=== PATIENT | male | born 1955 | race Caucasian/White ===

== ENCOUNTER 2021-02-27 14:18 | Emergency (ER) | payer MEDICARE, MEDICAID, SELFPAY ==
--- NOTE | ~2021-02-27 | US_ITS ---
EXAMINATION: US SCROTUM CLINICAL INFORMATION: Testicular swelling and pain.. COMPARISON: None TECHNIQUE: A sonogram of the scrotum was performed assessing lucio-scale appearance and color Doppler flow. Spectral Doppler analysis of the arterial and venous flow were performed in the testes bilaterally. FINDINGS: RIGHT: Right testicle measures 4.5 x 2.8 x 3.9 cm, volume 24.6 mL. No focal testicular parenchymal lesions are visualized. Spectral Doppler analysis of the arterial and venous flow is normal in the right testis. Right epididymal head is normal in size. Mild right-sided varicocele is seen. Mild right-sided hydrocele is present within this. Right epididymal Doppler flow is increased. The right scrotal wall is asymmetrically thickened, measures 0.75 cm as compared to the left side measuring 0.43 cm. Mild diffuse hypoechogenicity is present within the body of the right epididymis. LEFT: Left testicle measures 4.2 x 2.5 x 2.8 cm, volume 15.4 mL. No focal testicular parenchymal lesions are visualized. Spectral Doppler analysis of the arterial and venous flow is normal in the left testis. Left epididymal head is normal in size. No left varicocele is seen. Left epididymal Doppler flow is normal. Minimal left-sided hydrocele is seen. US/US scrotum IMPRESSION: 1. Abnormal study showing evidence of mild asymmetric scrotal wall thickening involving the right hemiscrotum with underlying mild diffuse hypoechogenicity of the body of the right epididymis with increased flow and normal-appearing right testicle. The findings consistent with mild epididymitis. The etiology for sclerotic wall thickening however is indeterminate. 2. Note is also made of mild right-sided varicocele and bilateral small hydrocele and sonographically normal-appearing left testicle and epididymis.
--- NOTE | ~2021-02-27 | US_ITS ---
EXAMINATION: US SCROTUM CLINICAL INFORMATION: Testicular swelling and pain.. COMPARISON: None TECHNIQUE: A sonogram of the scrotum was performed assessing lucio-scale appearance and color Doppler flow. Spectral Doppler analysis of the arterial and venous flow were performed in the testes bilaterally. FINDINGS: RIGHT: Right testicle measures 4.5 x 2.8 x 3.9 cm, volume 24.6 mL. No focal testicular parenchymal lesions are visualized. Spectral Doppler analysis of the arterial and venous flow is normal in the right testis. Right epididymal head is normal in size. Mild right-sided varicocele is seen. Mild right-sided hydrocele is present within this. Right epididymal Doppler flow is increased. The right scrotal wall is asymmetrically thickened, measures 0.75 cm as compared to the left side measuring 0.43 cm. Mild diffuse hypoechogenicity is present within the body of the right epididymis. LEFT: Left testicle measures 4.2 x 2.5 x 2.8 cm, volume 15.4 mL. No focal testicular parenchymal lesions are visualized. Spectral Doppler analysis of the arterial and venous flow is normal in the left testis. Left epididymal head is normal in size. No left varicocele is seen. Left epididymal Doppler flow is normal. Minimal left-sided hydrocele is seen. US/US scrotum doppler IMPRESSION: 1. Abnormal study showing evidence of mild asymmetric scrotal wall thickening involving the right hemiscrotum with underlying mild diffuse hypoechogenicity of the body of the right epididymis with increased flow and normal-appearing right testicle. The findings consistent with mild epididymitis. The etiology for sclerotic wall thickening however is indeterminate. 2. Note is also made of mild right-sided varicocele and bilateral small hydrocele and sonographically normal-appearing left testicle and epididymis.
[2021-02-27 14:37] VITALS: BP 149/82; PULSE 85; RESP 18; TEMP 37; O2SAT 94; BMI 34.8
--- NOTE | 2021-02-27 14:39 | ED.MALEGU ---
HPI - Male Genitourinary General Chief complaint: Urogenital-Male Stated complaint: swollen testicle Time Seen by Provider: 02/27/21 14:38 Source: patient Mode of arrival: ambulatory Limitations: no limitations History of Present Illness HPI Narrative: 65 y/o male with history of GERD presents to the ER with 3 days of right sided testicular pain and swelling. Denies trauma. No recent sexual activity. No fevers or urinary symptoms. No abdominal pain but he is starting to get nauseated as the pain is worsening. He has never had pain like this before. MD Complaint: testicle pain and testicle swelling Onset (ago): day(s) (3) Duration: progressively worsening Location: right testicle Radiation: abdomen Severity: severe Severity scale (1-10): 8 Quality: aching Relieving factors: supine Exacerbating factors: palpation and movement Associated symptoms: Reports denies other symptoms Related Data Sexually active: Yes (none in last 2+ weeks) Previous Rx's Medication Instructions Recorded ibuprofen 600 mg tablet 600 mg PO Q8H PRN #10 tab 02/27/21 levofloxacin 500 mg tablet 500 mg PO DAILY #10 tab 02/27/21 Allergies Allergy/AdvReac Type Severity Reaction Status Date / Time No Known Allergies Allergy Verified 02/27/21 14:39 Review of Systems Constitutional: Constitutional: Denies chills and Denies fever(s) Eyes: Eyes: Reports no additional eye complaints ENT: Reports Normal hearing present Cardiovascular: Cardiovascular: Denies chest pain and Denies dyspnea Respiratory: Respiratory: Denies dyspnea Gastrointestinal: Gastrointestinal: Denies abdominal pain, Denies diarrhea, Denies nausea and Denies vomiting Genitourinary: Genitourinary: Reports change in libido, Denies hematuria, Denies difficulty urinating, Reports genital pain, Denies dysuria, Denies flank pain, Denies penile discharge, Reports scrotal swelling, Reports testicular pain and Denies urinary frequency Musculoskeletal: Musculoskeletal: Denies back pain Integumentary/Breasts: Skin/Breast: Denies rash Neurologic: Reports Normal hearing present Psychiatric: Psychiatric: Reports anxiety and Reports change in libido Endocrine: Endocrine: Reports change in libido Hematologic/Lymphatic: Hematologic/Lymphatic: Denies easy bleeding and Denies easy bruising PMFSH Past Medical History Attestation statement: The following information was validated with the patient. Medical History No known health problems Social History Social History Advance Directives: No Physical Exam Vital Signs: Vital Signs: Last Vital Signs Temp 98.6 F 02/27/21 14:37 Pulse 85 02/27/21 14:37 Resp 18 02/27/21 14:37 BP 149/82 H 02/27/21 14:37 Pulse Ox 94 02/27/21 14:37 Body Mass Index 34.8 Const: General: cooperative, healthy appearing, comfortable and no acute distress Nutritional Appearance: overweight Orientation/consciousness: patient oriented x3 Limitations: no limitations HENMT: Head: Yes normal to inspection, Yes normocephalic and Yes atraumatic Ears: hearing grossly normal bilaterally General nose exam: Normal external nose present Face and sinus: Yes normal facial exam and Yes face symmetric Eyes: General: appearance normal, both eyes and all related structures Neck: Neck: Yes normal visual inspection Chest: Chest palpation & inspection: normal inspection of the chest Resp: Effort & Inspection: normal respiratory effort and able to speak in complete sentences Auscultation: clear to auscultation bilaterally Cardio: Rate: regular rate Rhythm: regular rhythm Heart sounds: S1 normal heart sound present and S2 normal heart sound present GI: Inspection: Yes obesity Palpation (GI): Soft to palpation, not firm and nontender Auscultation: normal bowel sounds Rectal Exam - Male: Yes deferred : Male General Exam: Yes edema on the right, Yes erythema, No hernia and Yes tenderness Testes: testicular lie normal, epididymal tenderness on the right, testicular swelling on the right and testicular tenderness on the right Skin: General skin exam: no rashes or lesions noted Neuro: General: patient oriented x3 Cranial nerves: Yes Normal hearing present Extrem: General: Yes normal to inspection Psych: Appearance: grossly normal and well kempt Mental Status: mental status grossly normal Speech and movement: Normal speech and movement present Course Course Course Narrative: 65 y/o male presenting for evaluation of right sided testicular pain and swelling x3 days. Will check UA and scrotal U/S w/ doppler to r/o torsion and assess for epididymitis. Reevaluation(s) Reevaluation #1: UA negative for infection. US showing findings consistent with mild epididymitis. Will treat with Levaquin x10 days. No concern for STI. Will refer to Urology. Stable for d/c home. MDM - Male Genitourinary Lab Data Labs: Lab Results 02/27/21 Range/Units 15:11 Urine Color YELLOW Urine Appearance CLEAR Urine pH 5.5 (5.0-8.0) Ur Specific [place] >= 1.030 H (1.005-1.025) Urine Protein 1+ H (NEG-TRACE) MG/DL Urine Glucose (UA) NEG (NEG) MG/DL Urine Ketones NEG (NEG) MG/DL Urine Blood NEG (NEG) Urine Nitrite NEG (NEG) Ur Leukocyte Esterase NEG (NEG) Urine RBC 0-2 (0) /HPF Urine WBC 0 (0-4) /HPF Ur Squamous Epith Cells 1+ /LPF Urine Bacteria NONE /LPF Hyaline Casts 0-2 /LPF Urine Mucus 3+ /LPF Critical Care Time Critical Care Time Critical Care Time: No Discharge Plan Discharge Clinical Impression: Epididymitis Patient Disposition: Home, Self-Care Instructions: Epididymitis (ED) Additional Instructions: Take the prescribed antibiotic as directed starting tomorrow, you were given the 1st dose in the ER today. Take motrin and/or Tylenol as needed for pain. Stay off of your feet for prolonged periods of time and keep your scrotum elevated as much as your can - place a small cloth under to raise up. Recommend following up with Urology for further evaluation. Follow up with your doctor as needed. If you develop new or worsening symptoms call 911 or come back to the ER for further evaluation. Prescriptions: New levofloxacin 500 mg tablet 500 mg PO DAILY Qty: 10 RF: 0 ibuprofen 600 mg tablet 600 mg PO Q8H PRN (Reason: fever or pain) Qty: 10 RF: 0 Referrals: Massimo Mcmillan MD [Physician] - 2 days (epididymitis)
[2021-02-27 15:31] LABS: Appearance Urine CLEAR; Color Urine YELLOW; Glucose Urine UA NEG (NEG); Leukocyte Esterase Urine NEG (NEG); Nitrite Urine NEG (NEG); PH 5.5 (5.0-8.0); Specific Gravity - Urine >= 1.030 (1.005-1.025); UACC Culture Trigger NO; Urine Blood NEG (NEG); Urine Ketones NEG (NEG); Urine Protein 1+ MG/DL (NEG-TRACE)
[2021-02-27 15:41] LABS: Hyaline Casts Urine 0-2 /LPF; Mucus Urine 3+ /LPF; RBC Urine 0-2 /HPF (0); Squamous Epithelial Cell Urine 1+ /LPF; WBC Urine 0 /HPF (0-4)
[2021-02-27] MEDS: Ibuprofen 600 MG TABLET PO (16:50)
[2021-02-27] MEDS: levoFLOXacin 500 MG TABLET PO (16:51)
== END 2021-02-27 17:23 | disposition home or self-care (01) ==
PROVIDERS: Physician Assistant; Emergency Provider Emergency Medicine
DX: N45.1 Epididymitis (principal); N50.811 Right testicular pain
CPT/HCPCS: 76870; 81001; 93975; 99284

== ENCOUNTER 2023-11-21 19:38 | Emergency (ER) | payer OTHER, SELFPAY ==
--- NOTE | ~2023-11-21 | CT_ITS ---
EXAMINATION: CT HEAD WITHOUT CONTRAST CLINICAL INFORMATION: Rule out bleed or infarct COMPARISON: None available. TECHNIQUE: Contiguous axial imaging was performed from the skull base to vertex without intravenous administration of contrast. This CT examination was performed using dose optimization techniques as appropriate, variously including the following: *Automated exposure control *Adjustment of mA and/or kV according to patient size (this includes techniques or standardized protocols for targeted exams where dose is matched to indication/reason for exam; i.e. extremities or head) *Use of iterative reconstruction technique DLP: 714 mGy-cm FINDINGS: There is no evidence of an extra-axial collection. There is no evidence of intra or extra-axial hemorrhage. The ventricles and extra-axial CSF spaces are appropriate. Greer-white matter differentiation is normal. There is question decreased attenuation of the right cerebellum. Appearance questionable for infarct. Further evaluation with brain MRI should be considered. No other mass, mass effect or evidence of infarct. No skull fracture. Visualized paranasal sinuses, mastoid air cells and middle ears are clear. CT/CT head/brain wo IV con IMPRESSION: Decreased attenuation in the right cerebellum questionable for infarct. Follow-up brain MRI should be considered if clinically indicated.
--- NOTE | ~2023-11-21 | XR_ITS ---
EXAMINATION: XR chest 2V CLINICAL INFORMATION: Reason for Exam palpitations COMPARISON: No prior chest x-ray available in our system for comparison at the time of this dictation. TECHNIQUE: XR chest 2V, 2 Views Lungs and Roxy: Left suprahilar opacity possibly a summation of vascular and rib shadows, cannot rule out underlying small lung nodule or lymph node. Pleura: Flattening of hemidiaphragm and increased AP diameter suggesting air trapping disease COPD. Heart: The heart is normal in size. Mediastinum: Retrocardiac opacity with air-fluid level most likely hiatal hernia.. Bones: Skeletal structures included are normal for patient's age. XR/XR chest 2V IMPRESSION: 1. Left suprahilar opacity possibly a summation of vascular and rib shadows, cannot rule out underlying lung nodule or lymph node. Consider correlation with follow-up chest x-ray in one month or further investigation with follow-up nonurgent CT scan.. 2. Air trapping disease COPD. 3. Retrocardiac opacity with air-fluid level most likely hiatal hernia.
--- NOTE | ~2023-11-21 | CT_ITS ---
EXAMINATION: CT ANGIOGRAM HEAD CT ANGIOGRAM NECK CLINICAL INFORMATION: Reason for Exam slurred speech COMPARISON: None. TECHNIQUE: Test bolus sequences followed by intravenous administration 70 mL of Omnipaque 350. Helical imaging was performed in the axial plane from the aortic arch to the skull vertex. Delayed postcontrast imaging of the head was also performed. The data was processed at the geospatial technologist's workstation for generation of MIP sequences. Angled MIPs and volume rendered reformatted images were also generated at an offline 3D workstation. Stenoses are assessed in accordance with Mixon et al. Quantification of Carotid Stenosis on CT Angiography. AJR 2006. 27(1):13-19. [address] CT examination was performed using dose optimization techniques as appropriate, variously including the following: *Automated exposure control *Adjustment of mA and/or kV according to patient size (this includes techniques or standardized protocols for targeted exams where dose is matched to indication/reason for exam; i.e. extremities or head) *Use of iterative reconstruction technique DLP: 1615.53 mGy-cm FINDINGS: CT HEAD: Noncontrast head CT findings discussed separately. No pathologic intra-axial enhancement or regional oligemia. CTA HEAD: Arteriovenous timing limits diagnostic assessment. No hemodynamically significant stenosis or occlusion in the anterior or posterior circulation. Patchy calcific plaque along the carotid siphons without associated stenosis. Trace calcific plaque of the left intradural vertebral artery with mild focal stenosis. Dominant right A1 VITO.. No aneurysms and no high flow vascular malformations. Timing of the contrast bolus allows assessment of the major dural venous sinuses, which all opacify normally CTA NECK: Classic 3 vessel branching pattern of the aortic arch. Mild partially calcific atherosclerotic disease of the aortic arch and great vessel origins. Origins of the great vessels are widely patent. Mild atherosclerosis of the common carotid arteries and carotid bifurcations without associated stenosis. The internal carotid arteries are widely patent. The vertebral arteries are codominant The vertebral artery ostia are grossly normal, noting limited diagnostic assessment. Both vertebral arteries are widely patent throughout their extracranial cervical course. CT NECK: Symmetric prominence of the palatine tonsils for age, presumably reactive. 4 mm right upper lobe subpleural nodule and additional smaller punctate subpleural nodule within the more anterior right upper lobe. Cervical spondylosis. CT/CT angio head neck IMPRESSION: 1. Arteriovenous timing limits diagnostic assessment of the distal intracranial arterial vasculature. Within this limitation, no acute arterial occlusion or hemodynamically significant stenosis within the head or neck. 2. 4 mm right upper lobe subpleural nodule According to the UPDATED 2017 Fleischner Society recommendations, the advised followup imaging for solid nodules < 6 mm is: LOW RISK PATIENT: No routine follow up. HIGH RISK PATIENT: Optional CT at 12 months.
[2023-11-21 19:50] VITALS: BP 136/71; PULSE 84; RESP 18; TEMP 36.3; O2SAT 95; BMI 32.9
--- NOTE | 2023-11-21 19:55 | ECG_ITS ---
Test Reason : HEART RACING Blood Pressure : / mmHG Vent. Rate : 078 BPM Atrial Rate : 078 BPM P-R Int : 162 ms QRS Dur : 098 ms QT Int : 360 ms P-R-T Axes : 063 013 033 degrees QTc Int : 410 ms Normal sinus rhythm Normal ECG No previous ECGs available Referred By: Rula Izquierdo Electronically Signed By:CASEY ALVAREZ MD
[2023-11-21 20:20] LABS: MANUAL DIFF FLAG NO
[2023-11-21 20:21] LABS: Basophils Percent Auto 0.5 % (0-2); Eosinophils Absolute Auto 0.3 X10*3/uL (0.0-0.4); Eosinophils Percent Auto 4.7 % (0-4); Hemoglobin 15.1 g/dl (14.0-18.0); Imm Gran Abs Auto 0.02 X10*3/uL (0.00-0.03); Imm Gran Pct Auto 0.3 % (0.0-0.4); Lymphocytes Absolute Auto 1.8 X10*3/uL (1.2-4.9); Lymphocytes Percent Auto 28.1 % (20-40); Mean Corpuscular HGB Conc 34.3 g/dl (31.0-36.0); Mean Corpuscular Hemoglobin 30.4 pg (27.0-33.0); Mean Corpuscular Volume 88.5 fL (80.0-98.0); Monocytes Absolute Auto 0.3 X10*3/uL (0.1-1.2); Monocytes Percent Auto 5.4 % (2-11); Neutrophils Absolute Auto 3.9 x10*3/uL (2.0-8.3); Platelet Count 223 X10*3/uL (160-400); Red Blood Count 4.97 X10*6/uL (4.60-5.80); White Blood Count 6.3 X10*3/uL (4.8-10.8)
[2023-11-21 20:31] LABS: Prothrombin Time 12.5 SEC (11.1-13.3)
[2023-11-21 20:32] VITALS: BP 127/67; PULSE 75; RESP 16; TEMP 36.8; O2SAT 94
[2023-11-21 20:35] LABS: Alanine Aminotransferase 19 U/L (0-40); Albumin Level 3.8 g/dL (3.5-5.0); Alkaline Phosphatase 56 U/L (39-117); Anion Gap 14 (12-20); Aspartate Amino Transferase 20 U/L (5-37); Bilirubin Total 0.6 mg/dL (0.0-1.0); Blood Urea Nitrogen 17 mg/dL (9-16); Calcium 9.7 mg/dL (8.4-10.2); Carbon Dioxide 23 mmol/L (22-29); Chloride 108 mmol/L (96-108); Creatinine Clr Calc Pharmacy 68.7; Estimated Glomerular Filt Rate 56; Glucose Random 122 mg/dL (60-115); Lipase 19 U/L (8-78); Magnesium 1.7 mg/dL (1.6-2.6); Potassium 3.9 mmol/L (3.3-5.1); Sodium 141 mmol/L (135-145); Total Protein 7.4 g/dL (6.5-8.0)
[2023-11-21 20:50] LABS: Troponin-I High Sensitivity < 2.7 ng/L (<3.5-35.0)
--- NOTE | 2023-11-21 21:08 | ED.GENADULT ---
HPI - General Adult General Chief complaint: General Medical Stated complaint: slurring words, sweating, a couple weeks Time Seen by Provider: 11/21/23 20:15 Source: patient, RN notes reviewed and old records reviewed Mode of arrival: ambulatory Limitations: no limitations History of Present Illness ED Provider: James MARTINEZ narrative: 68-year-old male presents for evaluation of slurred speech. He reports a medical history significant for BPH and GERD He also admits taking a baby aspirin daily but denies any other medical issues Patient reports he has noticed slurred speech for the last 1-2 weeks. He reports that his son has been told the patient that he noticed slurred speech at least a month ago after the patient returned from his winter home in [place] The patient also reports that he ?really have to think what I am about to say so that it comes out right. ? The patient denies any pain, blurry vision, dizziness He denies any weakness He has no other complaints or concerns at this time Related Data Previous Rx's ?Medication ?Instructions ?Recorded ibuprofen 600 mg tablet 600 mg PO Q8H PRN fever or pain 02/27/21 #10 tabs levofloxacin 500 mg tablet 500 mg PO DAILY #10 tabs 02/27/21 Allergies Allergy/AdvReac Type Severity Reaction Status Date / Time No Known Allergies Allergy Verified 11/21/23 19:56 Review of Systems Constitutional: Constitutional: Denies body ache(s), Denies chills and Denies headache(s) Eyes: Eyes: Denies blurry vision and Denies loss of vision ENT: Denies vertigo, Denies dizziness and Denies headache(s) Cardiovascular: Cardiovascular: Denies chest pain and Denies dyspnea Respiratory: Respiratory: Denies cough and Denies dyspnea Gastrointestinal: Gastrointestinal: Denies abdominal pain, Denies nausea and Denies vomiting Musculoskeletal: Musculoskeletal: Denies back pain Neurologic: Denies Neuro-related abnormal movements, Reports Abnormal speech present, Denies vertigo, Denies dizziness, Denies headache(s), Denies focal weakness, Denies loss of vision and Denies Sensory deficit (Neuro) [facility] Past Medical History Medical History No known health problems Social History Social History Smoked in Last 30 Days: No Use of substances other than those prescribed or required for medical reasons: No Advance Directives: No Advance Directives Information Provided: No Do you have a plan to hurt others: No Plan Physical Exam ED Vital Signs: Vital Signs - 24 hr 11/21/23 19:50 11/21/23 20:32 Temperature 97.3 F 98.3 F Pulse Rate 84 75 Respiratory Rate 18 16 Blood Pressure 136/71 127/67 Pulse Oximetry 95 94 Oxygen Delivery Method Room Air Room Air BMI result Body Mass Index 32.9 Const General: healthy appearing, comfortable, no acute distress, alert and awake Nutritional Appearance: well nourished Orientation/consciousness: patient oriented x3 HENMT Head: Yes normocephalic and Yes atraumatic Eyes Eyelids: Yes eyelids normal Conjunctivae: conjunctivae normal Sclerae: sclerae normal Corneas: corneas normal Pupils: Equal, round and reactive pupils present EOM: EOMs intact bilaterally Neck Neck: Yes full ROM Resp Effort & Inspection: normal respiratory effort, able to speak in complete sentences and not labored Skin General skin exam: elasticity normal Neuro General: patient oriented x3 Cranial nerves: Yes CN's II-XII intact bilaterally, Yes Equal, round and reactive pupils present and Yes Bilaterally intact EOM present Cognition (Neuro): normal cognition Speech: Abnormal speech present Gait exam (Neuro): Normal gait present Motor exam (neuro): 5/5 motor strength present throughout Sensory Exam: No Sensory deficit (Neuro) Extrem Other: Moving all extremities well without any obvious deformities NIH Stroke Scale Internal: Initial- Upon Arrival Time: 20:41 Level of Consciousness: Alert Level of Consciousness Questions: Answers both questions correctly Level of Consciousness Commands: Performs both tasks correctly Best Gaze: Normal Visual: No visual loss Facial Palsy: Normal Motor Arm (Right): No drift Motor Arm (Left): No drift Motor Leg (Right): No drift Motor Leg (Left): No drift Limb Ataxia: Absent Sensory: Normal Best Language: No aphasia Dysarthia: Mild to moderate dysarthria Extinction and Inattention: No abnormality Score: 1 Medications Administered Discontinued Medications Generic Name Dose Route Start Last Admin Trade Name Freq PRN Reason Stop Dose Admin Clopidogrel Bisulfate 75 mg 11/21/23 21:55 11/21/23 22:53 Clopidogrel Bisulfate 75 Mg Tablet PO 11/21/23 21:56 75 mg ONCE ONE Administration Iohexol 70 ml 11/21/23 21:22 11/21/23 21:23 Iohexol 350 Mg/Ml 100 Ml Infus..Btl IV 11/21/23 21:23 70 ml ONCE ONE Administration Medical Decision Making Medical Decision Making [facility] Narrative: 68-year-old male presents for evaluation of slurred speech. It is not entirely clear when his symptoms started, but the patient's son reported the patient that he has noticed slurred speech at least a month ago possibly going back to a month and a half. The patient reports his symptoms seem to be worsening over the last 1-[address], the patient symptoms are well outside the window for treatment with TNK. I ordered a CT angiography to go along with a dry CT that was ordered in triage. This will help get a better look if there is any large vessel occlusion. The patient's stroke score is currently at 1 also very low and likely rules him out for TNK as well Differential Diagnosis Differential Diagnoses: The differential diagnosis associated with the presentation includes CVA TIA Large vessel occlusion Aphasia Admission/Observation Consideration of admission/observation: Escalation of care including admission/observation considered Consider admission due to CVA. After discussion with the hospitalist and the chronicity of the symptoms it is felt that the patient's MRI can be ordered as an outpatient. Furthermore, the patient does not have any clinically significant large vessel occlusion Lab Data MDM Lab Attestation statement: I reviewed the patient's lab results. No leukocytosis, anemia, or left shift. Chemistries and no significant abnormalities. His BUN is just above normal at 17 and a random glucose of 122. The patient is not diabetic. Electrolytes within normal limits, creatinine within normal limits. Troponin undetectable, LFTs within normal limits. INR within normal limits. 11/21/23 20:15 11/21/23 20:15 Labs: Lab Results 11/21/23 Range/Units 20:15 WBC 6.3 (4.8-10.8) X10*3/uL RBC 4.97 (4.60-5.80) X10*6/uL Hgb 15.1 (14.0-18.0) g/dl Hct 44.0 (42.0-52.0) % MCV 88.5 (80.0-98.0) fL MCH 30.4 (27.0-33.0) pg MCHC 34.3 (31.0-36.0) g/dl RDW 13.0 (11.0-16.0) % Plt Count 223 (160-400) X10*3/uL MPV 9.0 L (9.4-12.4) fL Immature Gran % (Auto) 0.3 (0.0-0.4) % Neut % (Auto) 61.0 (45-73) % Lymph % (Auto) 28.1 (20-40) % Eddy % (Auto) 5.4 (2-11) % Eos % (Auto) 4.7 H (0-4) % Baso % (Auto) 0.5 (0-2) % Lymph # (Auto) 1.8 (1.2-4.9) X10*3/uL Eddy # (Auto) 0.3 (0.1-1.2) X10*3/uL Eos # (Auto) 0.3 (0.0-0.4) X10*3/uL Baso # (Auto) 0.0 (0.0-0.2) X10*3/uL Abs Immat Gran (auto) 0.02 (0.00-0.03) X10*3/uL Absolute Neuts (auto) 3.9 (2.0-8.3) x10*3/uL Absolute Nucleated RBC 0.000 (0.0-0.012) X10*3/uL Nucleated RBC % (auto) 0.0 (0.0-0.2) /100WBC PT 12.5 (11.1-13.3) SEC INR 1.0 (0.9-1.1) APTT 29.2 (26.0-36.8) SEC Sodium 141 (135-145) mmol/L Potassium 3.9 (3.3-5.1) mmol/L Chloride 108 (96-108) mmol/L Carbon Dioxide 23 (22-29) mmol/L Anion Gap 14 (12-20) BUN 17 H (9-16) mg/dL Creatinine 1.28 (0.5-1.4) mg/dL Estim Creat Clear Calc 68.7 Estimated GFR 56 Random Glucose 122 H (60-115) mg/dL Calcium 9.7 (8.4-10.2) mg/dL Magnesium 1.7 (1.6-2.6) mg/dL Total Bilirubin 0.6 (0.0-1.0) mg/dL AST 20 (5-37) U/L ALT 19 (0-40) U/L Alkaline Phosphatase 56 (39-117) U/L Troponin I High Sens < 2.7 (<3.5-35.0) ng/L Total Protein 7.4 (6.5-8.0) g/dL Albumin 3.8 (3.5-5.0) g/dL Lipase 19 (8-78) U/L Radiology Impression Discussion of test interpretation with radiology: I have reviewed the radiologist's reading. Radiologist Impression: CT/CT angio head neck IMPRESSION: 1. Arteriovenous timing limits diagnostic assessment of the distal intracranial arterial vasculature. Within this limitation, no acute arterial occlusion or hemodynamically significant stenosis within the head or neck. 2. 4 mm right upper lobe subpleural nodule According to the UPDATED 2017 Fleischner Society recommendations, the advised followup imaging for solid nodules < 6 mm is: LOW RISK PATIENT: No routine follow up. HIGH RISK PATIENT: Optional CT at [address]/CT head/brain wo IV con IMPRESSION: Decreased attenuation in the right cerebellum questionable for infarct. Follow-up brain MRI should be considered if clinically indicated. Discharge Plan Discharge Clinical Impression: Acute CVA (cerebrovascular accident) Patient Disposition: Home, Self-Care Instructions: Ischemic Stroke (DC) Additional Instructions: Your workup showed an ischemic stroke This is likely the cause of your slurred speech I recommend that you continue your baby aspirin and take Plavix daily as well as atorvastatin daily It is important that you follow-up with your primary doctor You should have an outpatient MRI of your brain to better evaluate the affected area Return for new or worsening symptoms Prescriptions: No Action levofloxacin 500 mg tablet 500 mg PO DAILY Qty: 10 0RF ibuprofen 600 mg tablet 600 mg PO Q8H PRN (Reason: fever or pain) Qty: 10 0RF Print Language: Arabic
[2023-11-21] MEDS: iohexoL 350 MG/ML 100 ML INFUS..BTL 70 ML IV (21:23)
[2023-11-21 21:42] LABS: Partial Thromboplastin Time 29.2 SEC (26.0-36.8)
[2023-11-21] MEDS: Clopidogrel Bisulfate 75 MG TABLET PO (22:53)
[2023-11-21 23:27] VITALS: BP 167/85; PULSE 69; RESP 20; TEMP 36.8; O2SAT 95
[2023-11-21] MEDS: LORazepam 0.5 MG TABLET PO (23:34)
[2023-11-21] MEDS: Atorvastatin Calcium 40 MG TABLET PO (23:34)
[2023-11-21 23:42] VITALS: BP 167/85; PULSE 69; RESP 20; TEMP 36.8
--- OUTSIDE RECORDS SUMMARY | 2023-11-24 10:02 | XMS_ITS | Continuity of Care Document ---
Author Organization [facility] ter Address [address] [place] [id number]- Care Team Providers Care Towel Stretcher Name Role Phone Crissy Ley Primary Care Physician Encounter [facility] Date(s): 07/06/22 - 07/07/[address] [address]- Discharge Disposition: A-D/C Walkout Attending Physician: Not on Staff, Attending MD Admitting Physician: Not on Staff, Admitting MD Referring Physician: Not on Staff, Referring MD Allergies, Adverse Reactions, Alerts No Known Allergies Immunizations Given and Recorded Vaccine Date Status Refusal Reason Influenza Inactive (IM) (oldterm) 1 05/29/08 Given 1Admin Note: vis given Medications Prilosec 20 mg oral enteric coated capsule 1 capsule = 20 mg, By Mouth, Daily, # 30 capsule, 11 Refills, 02/03/09 15:47:15 Start Date: 02/03/09 Stop Date: 01/29/10 Status: Ordered Ranitidine 0 Refills, Maintenance, 07/24/19 20:20:00 EST Start Date: 07/24/19 Status: Ordered Problem List Condition Confirmation Course Effective Dates Status Health St atus Informant Acid reflux Confirmed Active 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 Active Tubular adenoma of colon Confirmed Active Vital Signs Most recent to oldest [Reference Range]: 1 2 3 Oxygen Saturation [94-100 %] 95 % (07/07/22 12:33 AM) 96 % (07/06/22 9:35 PM) 97 % (07/06/22 6:43 PM) Pulse Rate [55-90 bpm] 82 bpm (07/07/22 12:33 AM) 84 bpm (07/06/22 9:35 PM) 83 bpm (07/06/22 6:43 PM) Blood Pressure [90-138/55-84 mm Hg] 126/72mm Hg (07/07/22 12:33 AM) 119/77mm Hg (07/06/22 9:35 PM) 113/88mm Hg (07/06/22 6:43 PM) Respiratory Rate [16-30 br/min] 18 br/min (07/06/22 4:59 PM) 16 br/min (07/06/22 10:49 AM) Temperature [96.8-100.4 DegF] 98.6 DegF (07/07/22 12:33 AM) 99.4 DegF (07/06/22 9:35 PM) 99.4 DegF (07/06/22 6:43 PM) Mode of Delivery (Oxygen) Room air (07/06/22 6:43 PM) Room air (07/06/22 4:59 PM) Room air (07/06/22 2:53 PM) Blood pressure sites Arm, left (07/07/22 12:33 AM) Arm, right (07/06/22 9:35 PM) Arm, right (07/06/22 6:43 PM) Temperature Route Oral (07/07/22 12:33 AM) Oral (07/06/22 9:35 PM) Oral (07/06/22 6:43 PM) Social History Social History Type Response Smoking Status Never smoker entered on: 03/28/17 Sex EKG study * Event Display: EKG Authored Date: * Event Display: ECG 12-Lead Authored Date: Please click on pdf link to open report * Event Display: ECG 12-Lead Authored Date: Ventricular Rate: 109 BPM Atrial Rate: 109 BPM P-R Interval: 148 ms QRS Duration: 88 ms Q-T Interval: 314 ms QTC Calculation(Bazett): 422 ms P Ashton: 62 degrees R Ashton: 28 degrees T Ashton: 34 degrees Sinus tachycardia Otherwise normal ECG When compared with ECG of 25-JUL-2019 08:24, No significant change was found Confirmed by AMILCAR SLAUGHTER MD ([id number]) on 07/06/2022 4:22:44 PM [place]: AMILCAR SLAUGHTER MD Patient Care team information Care Team Personnel Name: Jaswinder PRECIADO, Marisa Position: S RN Member Role: Primary Care Nurse Name: Crissy Ley Position: Reference Physician Member Role: PCP Address: Address: [address] [place] [id number]- Care Team Related Persons Name: RASHIDA CRANE Address: home [address] [place] [address] Name: MACEY CRANE Address: home [address] [place] [address] Name: FRANKY CRANE Address: home [address] [place] [address]
--- OUTSIDE RECORDS SUMMARY | 2023-11-24 10:02 | XMS_ITS | Patient Health Record ---
Author Organization [facility] Address [address], [place] [id number] Support Name Relationship Address Phone Ronan Bergman Guarantor Unknown Unavailable REASON FOR REFERRAL No Information MEDICATIONS Medication SIG (Take, Route, Fr equency, Duration) Notes Start Date End Date Status PriLOSEC 40 mg 1 cap(s) orally once a day for 30 day(s) 06/19/2023 Active SOCIAL HISTORY Sex Assigned At : Social History Observation Description Sex Assigned At Unknown PLAN OF TREATMENT No Information Insurance Providers Payer Name Payer Address Payer Phone Subscriber Number Group Number Insured Name Patient Relationship to Insured Coverage Start Date Coverage End Date [employer] [address] [facility] [place] [address] [id number] Ronan Bergman Self - patient is the insured MEDICAL (GENERAL) HISTORY Medical History History ICD Code Heartburn
--- OUTSIDE RECORDS SUMMARY | 2023-11-24 10:02 | XMS_ITS | Continuity of Care Document ---
Author Organization [facility] ter Address [address] [place] [id number]- Care Team Providers Care Supervisor Stripping Name Role Phone Crissy Ley Primary Care Physician Encounter [facility] Date(s): 07/24/19 - 07/25/[address] [address] [facility] Encounter Diagnosis Strep pharyngitis(Final) - 07/25/19 Discharge Disposition: A-D/C Home Attending Physician: Thony Pagan MD Admitting Physician: Thony Pagan MD Referring Physician: Not on Staff, Referring MD Allergies, Adverse Reactions, Alerts Substance Reaction Severity Status NKA Active Immunizations Given and Recorded Vaccine Date Status Refusal Reason Influenza Inactive (IM) (oldterm) 1 05/29/08 Given 1Admin Note: vis given Medications penicillin V potassium 500 mg oral tablet 1 tablet = 500 mg, By Mouth, 2 times a day, for 10 days, # 20 tablet, 0 Refills, Acute 08/04/19 12:13:00 EST, 07/25/19 12:13:00 EST, [facility]/pharmacy #[id number], 180, cm, 12/15/18 14:12:00 EDT, Height Start Date: 07/25/19 Stop Date: 08/04/19 Status: Ordered Prilosec 20 mg oral enteric coated capsule 1 capsule = 20 mg, By Mouth, Daily, # 30 capsule, 11 Refills, 02/03/09 15:47:15 Start Date: 02/03/09 Stop Date: 01/29/10 Status: Ordered Ranitidine 0 Refills, Maintenance, 07/24/19 20:20:00 EST Start Date: 07/24/19 Status: Ordered Problem List Condition Effective Dates Status Health Status Inform ant Acid reflux(Confirmed) Active Solomon esophagus(Confirmed) Active Tubular adenoma of colon(Confirmed) Active Results Orders for Microbiology Reports Name Date Group A Strep Screen and Culture 07/24/19 Microbiology Reports TEST:Group A Strep Screen and Culture STATUS:Auth (Verified) BODY SITE: SOURCE:THROAT COLLECTED DATE/TIME:07/24/19 8:20 PM Group A Strep Screen and Culture SPECIMEN DESCRIPTION : THROAT SWAB SPECIAL REQUESTS : NONE DIRECT EXAM : RAPID GROUP A SCREEN IS POSITIVE, CULTURE NOT INDICATED. CULTURE : RAPID GROUP A SCREEN IS POSITIVE, CULTURE NOT INDICATED. REPORT STATUS : FINAL 07/24/2019 Vital Signs Most recent to oldest [Reference Range]: 1 2 3 Oxygen Saturation [94-100 %] 96 % (07/25/19 12:32 PM) 94 % (07/25/19 8:07 AM) 96 % (07/25/19 5:34 AM) Pulse Rate [55-90 bpm] 67 bpm (07/25/19 12:32 PM) 80 bpm (07/25/19 8:07 AM) 96 bpm *H* (07/25/19 5:34 AM) Blood Pressure [90-138/55-84 mm Hg] 140/84mm Hg *H* (07/25/19 12:32 PM) 123/78mm Hg (07/25/19 8:07 AM) 123/74mm Hg (07/25/19 5:34 AM) Respiratory Rate [16-30 br/min] 16 br/min (07/25/19 12:32 PM) 16 br/min (07/25/19 9:34 AM) 18 br/min (07/25/19 8:07 AM) Temperature [96.8-100.4 DegF] 98.1 DegF (07/25/19 12:32 PM) 100.3 DegF (07/25/19 8:07 AM) 99.4 DegF (07/25/19 5:34 AM) Mode of Delivery (Oxygen) Room air (07/25/19 12:32 PM) Room air (07/25/19 8:07 AM) Room air (07/25/19 5:34 AM) Blood pressure sites Arm, right (07/25/19 12:32 PM) Arm, right (07/25/19 8:07 AM) Arm, right (07/25/19 5:34 AM) Temperature Route Oral (07/25/19 12:32 PM) Oral (07/25/19 8:07 AM) Oral (07/25/19 5:34 AM) Social History Social History Type Response Smoking Status Never smoker entered on: 03/28/17 Sex
== END 2023-11-21 23:43 | disposition home or self-care (01) ==
PROVIDERS: Physician Assistant Medical; Emergency Provider Internal Medicine; PCP Physician Assistant
DX: I63.9 Cerebral infarction, unspecified (principal)
CPT/HCPCS: 36415; 70450; 70496; 70498; 71046; 80053; 83690; 83735; 84484; 85025; 85610; 85730; 93005; 99284; 99285; Q9967

== ENCOUNTER → 2023-11-21 19:55 | Outpatient (BNV) | payer OTHER, MEDICAID, SELFPAY | PROVIDERS: Emergency Provider Internal Medicine; PCP Physician Assistant; Visit Provider Internal Medicine Cardiovascular Disease | DX: R00.2 Palpitations (principal) | CPT/HCPCS: 93010 ==

== ENCOUNTER 2024-01-16 22:33 | Emergency (ER) | payer MEDICARE, MEDICAID, SELFPAY ==
--- NOTE | ~2024-01-16 | US_ITS ---
EXAMINATION: US VENOUS ULTRASOUND WITH DOPPLER LOWER EXTREMITY, LEFT CLINICAL INFORMATION: Left lower extremity pain COMPARISON: None available. TECHNIQUE: Ultrasound of the deep veins is performed from the hip to the calf with compression sonography and color and pulse Doppler assessment. Spectral analysis with color-flow imaging is performed. FINDINGS: There is normal venous compression and respiratory variation and augmented flow. The visualized common femoral vein, superficial femoral vein, profunda femoral vein, popliteal vein, and the trifurcation region shows no evidence of deep venous thrombosis. Popliteal fossa cyst measures 2.9 x 0.8 x 1.1 cm. If the patient's symptoms persist, followup ultrasound in 5 days 7 days might be of value to exclude proximal propagation from a non-visualized calf vein. US/US venous duplex LE IMPRESSION: 1. No DVT demonstrated in the left lower extremity. 2. Popliteal fossa cyst measuring up to 2.9 cm.
--- NOTE | ~2024-01-16 | CT_ITS ---
EXAMINATION: CT ANGIOGRAM HEAD CT ANGIOGRAM NECK CLINICAL INFORMATION: Reason for Exam Stroke Protocol slurred speech dizziness COMPARISON: Same day noncontrast head CT, CTA head and neck 11/21/2023 TECHNIQUE: Initial noncontrast translator/interpreter imaging of the head and neck was performed. Comparison is made with noncontrast head CT from earlier today. Test bolus sequences followed by intravenous administration 70 mL of Omnipaque 350. Helical imaging was performed in the axial plane from the aortic arch to the skull vertex. Delayed postcontrast imaging of the head was also performed. The data was processed at the food technologist workstation for generation of MIP sequences. Angled MIPs and volume rendered reformatted images were also generated at an offline 3D workstation. Stenoses are assessed in accordance with NASCET criteria unless otherwise indicated. DLP: 1607 mGy-cm This CT examination was performed using dose optimization techniques as appropriate, variously including the following: *Automated exposure control. *Adjustment of mA and/or kV according to patient size (this includes techniques or standardized protocols for targeted exams where dose is matched to indication/reason for exam; i.e. extremities or head). *Use of iterative reconstruction technique. FINDINGS: CT Head: There is no evidence of acute intracranial hemorrhage or edematous territorial infarction. A few foci of hypoattenuation in the periventricular and deep white matter are consistent with mild microangiopathy. Greer-white matter differentiation is preserved. Proportional prominence of the ventricles and sulcal spaces. No evidence for obstructive hydrocephalus. No abnormal mass effect or midline shift. No extra-axial fluid collections. No pathologic intra-axial enhancement or regional oligemia. No acute soft tissue or osseous abnormalities. The mastoid air cells and paranasal sinuses are clear. CT Neck: The thyroid gland and remaining cervical soft tissues are within normal limits. Multilevel cervical spondylosis. CT Upper Chest: The visualized lung apices and upper mediastinum are within normal limits. Neck CTA: CTA of the neck is somewhat technically limited secondary to motion and streak artifact. Aortic Arch: Normal contour and caliber. Classic 3 vessel branching pattern of the aortic arch. Great Vessel Origins: No significant stenosis of the branch origins. The origin and proximal right common carotid artery is not well visualized due to streak artifact. Right Common Carotid Artery: No focal stenosis or occlusion. Cervical Right Internal Carotid Artery: Mild calcific atherosclerotic disease of the carotid bulb and proximal internal carotid artery without flow-limiting stenosis. Left Common Carotid Artery: No focal stenosis or occlusion. Cervical Left Internal Carotid Artery: Normal opacification without focal stenosis or occlusion. Cervical Right Vertebral Artery: No focal stenosis or occlusion. Cervical Left Vertebral Artery: The vessel origin and proximal V1 segment are not well-visualized due to artifact. No focal stenosis or occlusion. Brain CTA: Intracranial Internal Carotid Arteries: Calcific atherosclerotic disease of the intracranial internal carotid arteries without occlusion or flow-limiting stenosis. Right Anterior Cerebral Artery: Normal A1 segment. Normal opacification of the distal VITO segments. Left Anterior Cerebral Artery: The A1 segment is diminutive. Normal opacification of the distal VITO segments. Anterior Communicating Artery: Normal. Right Middle Cerebral Artery: Normal M1 segment of the MCA without focal stenosis or occlusion. Normal arborization of the distal segments. Left Middle Cerebral Artery: Normal M1 segment of the MCA without focal stenosis or occlusion. Normal arborization of the distal segments. Right Vertebral Artery: Normal V4 segment. Left Vertebral Artery: Mild calcified atherosclerotic disease proximally without significant luminal narrowing. Basilar Artery: Normal without focal stenosis or occlusion. Normal appearance of the proximal superior cerebellar arteries. Right Posterior Cerebral Artery: Normal P1 segment. Normal opacification of the distal CLAY STAIN MIXER segments. Left Posterior Cerebral Artery: Normal P1 segment. Normal opacification of the distal CLAY STAIN MIXER segments. Normal opacification of the superior sagittal, straight, transverse, and sigmoid sinuses. CT/CT angio head neck stroke IMPRESSION: No arterial high grade stenosis or large vessel occlusion in the head or neck is identified. Above impression was communicated to Rena HIGHTOWER on 01/16/2024 at 11:36 PM.
--- NOTE | ~2024-01-16 | CT_ITS ---
EXAMINATION: CT HEAD WITHOUT CONTRAST (STROKE PROTOCOL) CLINICAL INFORMATION: Stroke protocol. Slurred speech and dizziness. COMPARISON: CT head dated 11/21/2023. TECHNIQUE: Contiguous axial imaging was performed from the skull base to vertex without intravenous administration of contrast. This CT examination was performed using dose optimization techniques as appropriate, variously including the following: *Automated exposure control *Adjustment of mA and/or kV according to patient size (this includes techniques or standardized protocols for targeted exams where dose is matched to indication/reason for exam; i.e. extremities or head) *Use of iterative reconstruction technique DLP: 786 mGy-cm FINDINGS: There is no acute intracranial hemorrhage. There is no evidence of acute/subacute cerebral or cerebellar infarction. There is no mass effect or midline shift. There is no extra-axial fluid collection. The ventricles are normal in size. The orbits are symmetric and within normal limits. The calvarium is intact. The mastoid air cells are clear. Paranasal sinuses are well aerated. CT/CT head for stroke IMPRESSION: No acute intracranial pathology. This critical result was discussed with Rena HIGHTOWER at 11:00 PM hours on 01/16/2024. It was ascertained that the content and urgency of the report was understood at the time of direct communication.
--- NOTE | 2024-01-16 22:39 | ECG_ITS ---
Test Reason : STROKE Blood Pressure : / mmHG Vent. Rate : 072 BPM Atrial Rate : 072 BPM P-R Int : 162 ms QRS Dur : 096 ms QT Int : 390 ms P-R-T Axes : 062 017 035 degrees QTc Int : 427 ms Normal sinus rhythm Normal ECG When compared with ECG of 21-NOV-2023 20:07, No significant change was found Referred By: Rena Van Electronically Signed By:Dany Cristobal
[2024-01-16 22:40] VITALS: BMI 38.6
[2024-01-16 22:41] VITALS: BP 187/99; PULSE 82; RESP 18; O2SAT 98; BMI 38.6
--- NOTE | 2024-01-16 22:49 | ED.NEUROSD ---
HPI - Neuro Symptoms/Deficit General Chief Complaint: Stroke Stated Complaint: Slurred speech/Neck pain Time Seen by Provider: 01/16/24 22:39 Source: patient Mode of arrival: ambulatory Limitations: no limitations History of Present Illness ED Provider: Maryjane BONILLA HPI Narrative: This is a 68-year-old male history of CVA, hyperlipidemia, bph, GERD, obesity presenting to the emergency department with sudden onset dizziness and changes in speech that started at approximately 10:15 according to patient and son he recently had a stroke and was placed on Plavix. He was on aspirin and Plavix however he stopped aspirin because he felt like taking both was too much. Patient reports after his previous stroke that was a few weeks ago his speech has not been back to baseline however patient and son report that today his speech got even worse at approximately 22:15. Patient was having some difficulty with word finding as well as having long pauses within speaking. It was witnessed by the triage nurse. When he got back to me in the emergency department I was unable to appreciate long pauses or difficulty with word finding. He states he is starting to feel slightly better however he is dizzy and he feels like the room is spinning. Patient reports he is very anxious. Patient denies head trauma. Patient is not on anticoagulation only on Plavix at this time. Denies chest pain, shortness of breath, nausea, vomiting, abdominal pain, headache, vision changes, dizziness and weakness. NIHSS-0 Related Data Previous Rx's ?Medication ?Instructions ?Recorded ibuprofen 600 mg tablet 600 mg PO Q8H PRN fever or pain 02/27/21 #10 tabs levofloxacin 500 mg tablet 500 mg PO DAILY #10 tabs 02/27/21 atorvastatin 40 mg tablet 40 mg PO DAILY #30 tabs 11/21/23 clopidogrel 75 mg tablet (Plavix) 75 mg PO DAILY #30 tabs 11/21/23 meclizine 25 mg tablet 25 mg PO DAILY PRN dizziness #14 01/16/24 tabs Allergies Allergy/AdvReac Type Severity Reaction Status Date / Time No Known Allergies Allergy Verified 01/16/24 22:43 Review of Systems Review of Systems: Yes all other systems are reviewed and are negative PMFSH Past Medical History Attestation statement: The following information was validated with the patient. Source: old records reviewed and nursing notes reviewed Medical History No known health problems Social History Social History Advance Directives: No Advance Directives Information Provided: Yes Physical Exam Vital Signs: Vital Signs: Last Vital Signs Temp 98.5 F 01/16/24 23:15 Pulse 67 01/17/24 00:32 Resp 21 H 01/16/24 23:15 BP 139/81 01/17/24 00:32 Pulse Ox 95 01/16/24 23:15 O2 Del Method Room Air 01/16/24 23:15 BMI result Body Mass Index 38.6 vss Appearance: Alert.? Oriented X3.? No acute distress.? Head: Normocephalic, atraumatic, no step-offs or deformities Eyes: Pupils equal, round and reactive to light.? Neck: Normal inspection.? Neck supple.? CVS: Normal heart rate and rhythm.? Pulses normal.? Respiratory: No respiratory distress.? Breath sounds normal.? Abdomen: Soft and nontender.? Skin: Skin warm and dry.? Normal skin color.? Normal skin turgor.? Extremities: No lower extremity edema.? No calf ttp. 5/5 strength to bilateral upper and lower extremities Back: No midline tenderness, no C-spine tenderness, full range of motion, no CVA tenderness bilaterally Neuro: Oriented X 3.? No motor deficit.? No sensory deficit. CN 2-12 intact . Normal kdpykg-yw-hlyh, xiuq-bk-moti. Steady tandem gait normal coordination. Negative Romberg and pronator drift Course Reevaluation(s) Reevaluation #1: Patient was seen here on 11/21/2023 and discharged with a diagnosis of acute CVA patient had a CT angio head and neck that showed decreased attenuation in the right cerebellum questionable for infarct. Time: 22:55 Reevaluation #2: [facility] called for STAT results of patients dry head CT --> no acute findings Time: 22:59 Reevaluation #3: CBC unremarkable. Chemistry no acute findings needing intervention. BUN and creatinine slightly elevated at his baseline this is not an acute finding. Triglycerides, cholesterol, LDL the normal range. HDL slightly low. Ethanol negative. Coags unremarkable. CT head and head/neck CTA unremarkable. Patient continues to have a normal exam on my evaluation. No indication for MRI at this time cerebellar function intact and normal neuro. NIHSS-0 UA pending. Time: 23:40 Additional Reevaluation(s): UA pending now tells me left calf has been hurting him lately DVT study ordered to rule out DVT UA with no infection. Orthostatic vitals negative. DVT steady preliminary read negative for DVT left Gerardo's cyst. Will wait for final read however patient can be discharged home. Patient is scheduled to see neurology within a week. His neurological assessment nonfocal patient feels well. He is no longer anxious. Medications Administered Discontinued Medications Generic Name Dose Route Start Last Admin Trade Name Freq PRN Reason Stop Dose Admin Sodium Chloride 1,000 mls @ 999 mls/hr 01/16/24 23:45 01/17/24 00:55 Ns IV 01/17/24 00:45 Not Given .Q1H1M BIENVENIDO Iohexol 70 ml 01/16/24 23:08 01/16/24 23:09 Iohexol 350 Mg/Ml 100 Ml Infus..Btl IV 01/16/24 23:09 70 ml ONCE ONE Administration Meclizine HCl 25 mg 01/16/24 23:40 01/17/24 00:47 Meclizine Hcl 25 Mg Tablet PO 01/16/24 23:41 25 mg ONCE ONE Administration Medical Decision Making Medical Decision Making [facility] Narrative: 60-year-old male presents with sudden onset dizziness and changes in speech that began at 10:15. On Plavix. No head trauma. Here with son. Nurse in triage able to appreciate changes in speech however I was not able to upon my history taking. Physical exam benign. Normal strength. NIH stroke scale 0. Cerebellar function intact. History and physical exam concerning for possible TIA versus CVA vs LVO. Unlikely intracranial hemorrhage, posterior stroke. I do not suspect a meningitis, encephalitis. Will rule out metabolic derangements and UTI. Plan labs, imaging, urine Differential Diagnosis Differential Diagnoses: The differential diagnosis associated with the presentation includes History and physical exam concerning for possible TIA versus CVA. Unlikely intracranial hemorrhage, posterior stroke. I do not suspect a meningitis, encephalitis. Will rule out metabolic derangements and UTI. Admission/Observation Consideration of admission/observation: Escalation of care including admission/observation considered possible Lab Data [facility] Lab Attestation statement: I reviewed the patient's lab results. 01/16/24 23:10 01/16/24 23:10 Labs: Lab Results 01/16/24 01/16/24 01/16/24 Range/Units 22:43 22:45 23:10 WBC 7.8 (4.8-10.8) X10*3/uL RBC 4.93 (4.60-5.80) X10*6/uL Hgb 15.2 (14.0-18.0) g/dl Hct 44.1 (42.0-52.0) % MCV 89.5 (80.0-98.0) fL MCH 30.8 (27.0-33.0) pg MCHC 34.5 (31.0-36.0) g/dl RDW 13.0 (11.0-16.0) % Plt Count 199 (160-400) X10*3/uL MPV 9.5 (9.4-12.4) fL Immature Gran % (Auto) 0.4 (0.0-0.4) % Neut % (Auto) 53.2 (45-73) % Lymph % (Auto) 33.3 (20-40) % Carson % (Auto) 7.6 (2-11) % Eos % (Auto) 4.9 H (0-4) % Baso % (Auto) 0.6 (0-2) % Lymph # (Auto) 2.6 (1.2-4.9) X10*3/uL Carson # (Auto) 0.6 (0.1-1.2) X10*3/uL Eos # (Auto) 0.4 (0.0-0.4) X10*3/uL Baso # (Auto) 0.1 (0.0-0.2) X10*3/uL Abs Immat Gran (auto) 0.03 (0.00-0.03) X10*3/uL Absolute Neuts (auto) 4.2 (2.0-8.3) x10*3/uL Absolute Nucleated RBC 0.000 (0.0-0.012) X10*3/uL Nucleated RBC % (auto) 0.0 (0.0-0.2) /100WBC PT (11.1-13.3) SEC Whole Blood PT 12.7 (11.1-13.5) sec INR (0.9-1.1) Whole Blood INR 1.1 (0.9-1.1) APTT (26.0-36.8) SEC Sodium 143 (135-145) mmol/L Potassium 3.9 (3.3-5.1) mmol/L Chloride 107 (96-108) mmol/L Carbon Dioxide 26 (22-29) mmol/L Anion Gap 14 (12-20) BUN 21 H (9-16) mg/dL Creatinine 1.12 (0.5-1.4) mg/dL Estim Creat Clear Calc 70.4 Estimated GFR > 60 POC Glucose 102 (60-115) mg/dL Random Glucose 108 (60-115) mg/dL Calcium 9.3 (8.4-10.2) mg/dL Troponin I High Sens < 2.7 (<3.5-35.0) ng/L Triglycerides 107 (<150) mg/dL Cholesterol 114 (<200) mg/dL LDL Cholesterol, Calc 59 (<100) mg/dL HDL Cholesterol 34 L (>40) mg/dL Urine Opiates Screen (Not Detect) Ur Buprenorphine Scrn (Not Detect) ng/mL Ur Oxycodone Screen (Not Detect) ng/mL Urine Methadone Screen (Not Detect) ng/mL Urine Fentanyl Screen (Not Detect) Ur Barbiturates Screen (Not Detect) Ur Phencyclidine Scrn (Not Detect) Ur Amphetamines Screen (Not Detect) U Benzodiazepines Scrn (Not Detect) Urine Cocaine Screen (Not Detect) U Marijuana (THC) Screen (Not Detect) Ethyl Alcohol < 10 mg/dL 01/16/24 01/17/24 Range/Units 23:20 00:20 WBC (4.8-10.8) X10*3/uL RBC (4.60-5.80) X10*6/uL Hgb (14.0-18.0) g/dl Hct (42.0-52.0) % MCV (80.0-98.0) fL MCH (27.0-33.0) pg MCHC (31.0-36.0) g/dl RDW (11.0-16.0) % Plt Count (160-400) X10*3/uL MPV (9.4-12.4) fL Immature Gran % (Auto) (0.0-0.4) % Neut % (Auto) (45-73) % Lymph % (Auto) (20-40) % Carson % (Auto) (2-11) % Eos % (Auto) (0-4) % Baso % (Auto) (0-2) % Lymph # (Auto) (1.2-4.9) X10*3/uL Carson # (Auto) (0.1-1.2) X10*3/uL Eos # (Auto) (0.0-0.4) X10*3/uL Baso # (Auto) (0.0-0.2) X10*3/uL Abs Immat Gran (auto) (0.00-0.03) X10*3/uL Absolute Neuts (auto) (2.0-8.3) x10*3/uL Absolute Nucleated RBC (0.0-0.012) X10*3/uL Nucleated RBC % (auto) (0.0-0.2) /100WBC PT 11.7 (11.1-13.3) SEC Whole Blood PT (11.1-13.5) sec INR 1.0 (0.9-1.1) Whole Blood INR (0.9-1.1) APTT 30.0 (26.0-36.8) SEC Sodium (135-145) mmol/L Potassium (3.3-5.1) mmol/L Chloride (96-108) mmol/L Carbon Dioxide (22-29) mmol/L Anion Gap (12-20) BUN (9-16) mg/dL Creatinine (0.5-1.4) mg/dL Estim Creat Clear Calc Estimated GFR POC Glucose (60-115) mg/dL Random Glucose (60-115) mg/dL Calcium (8.4-10.2) mg/dL Troponin I High Sens (<3.5-35.0) ng/L Triglycerides (<150) mg/dL Cholesterol (<200) mg/dL LDL Cholesterol, Calc (<100) mg/dL HDL Cholesterol (>40) mg/dL Urine Opiates Screen Not Detected (Not Detect) Ur Buprenorphine Scrn Not Detected (Not Detect) ng/mL Ur Oxycodone Screen Not Detected (Not Detect) ng/mL Urine Methadone Screen Not Detected (Not Detect) ng/mL Urine Fentanyl Screen Not Detected (Not Detect) Ur Barbiturates Screen Not Detected (Not Detect) Ur Phencyclidine Scrn Not Detected (Not Detect) Ur Amphetamines Screen Not Detected (Not Detect) U Benzodiazepines Scrn Not Detected (Not Detect) Urine Cocaine Screen Not Detected (Not Detect) U Marijuana (THC) Screen Not Detected (Not Detect) Ethyl Alcohol mg/dL Independent Interpretation I performed an independent interpretation of an: EKG (Vent. Rate : 072 BPM Atrial Rate : 072 BPM P-R Int : 162 ms QRS Dur : 096 ms QT Int : 390 ms P-R-T Axes : 062 017 035 degrees QTc Int : 427 ms Normal sinus rhythm Normal ECG When compared with ECG of 21-NOV-2023 20:07, No significant change was found ) and CT Scan (CT/CT head for stroke IMPRESSION: No acute intracranial pathology. This critical result was discussed with Rena HIGHTOWER at 11:00 PM hours on 01/16/2024. It was ascertained that the content and urgency of the report was understood at the time of direct communication.) Radiology Impression Discussion of test interpretation with radiology: I have reviewed the radiologist's reading. External Record Review External record reviewed: Office record, Outpatient record, Prior outpatient labs and Prior outpatient radiology Critical Care Time Critical Care Time Critical Care Time: Yes Total Critical Care Time: 45 Attestation: I attest to this time spent taking care of the patient, obtaining history, physical, reviewing labs, imaging, speaking to my attending, specialist or hospitalist. Discharge Plan Discharge Clinical Impression: Dizziness, Pain of left calf Patient Disposition: Home, Self-Care Instructions: Dizziness (ED) Additional Instructions: Take your medications as prescribed. If you were prescribed antibiotics today, it is important that you take your medication to their entirety, do not skip any doses, do not finish them early. Follow-up with your primary care provider this week. Return to the emergency department with new or worsening symptoms. Such as fevers, chills, chest pain, shortness of breath, nausea, vomiting, dizziness, headache, vision changes, lethargy In case of emergency call 911 Prescriptions: New meclizine 25 mg tablet 25 mg PO DAILY PRN (Reason: dizziness) Qty: 14 0RF No Action levofloxacin 500 mg tablet 500 mg PO DAILY Qty: 10 0RF ibuprofen 600 mg tablet 600 mg PO Q8H PRN (Reason: fever or pain) Qty: 10 0RF clopidogrel [Plavix] 75 mg tablet 75 mg PO DAILY Qty: 30 0RF atorvastatin 40 mg tablet 40 mg PO DAILY Qty: 30 0RF Ref[place]: [facility] [place] [facility] [place]Provider Group] - 2 days Jed Bhandari PA-C [Primary Care Provider] - 2 days Stand Alone Forms: Work/School Release Print Language: Wallisian
[2024-01-16 22:50] LABS: Prothrombin Time Whole Bld POC 12.7 sec (11.1-13.5); ~PT, ~INR - Anti Coag Clinic 1.1 (0.9-1.1)
[2024-01-16 22:50] LABS: Glucose, Whole Blood 102 mg/dL (60-115)
--- NOTE | 2024-01-16 22:56 | PC.NURSE ---
The pt ambulated back from triage, gait even and steady and no assistance required. The pt is awake, alert, oriented, able to recall events of the evening with family member present to assist with providing additional information. 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 PA to bedside for initial assessment, IV line established, INR and POC obtained. Pt transported to CT via stretcher, he was able to independently transfer himself from stretcher to CT table. 2nd IV line established d/t (Right AC) as the previous line to L AC appears to be infiltrated.
--- OUTSIDE RECORDS SUMMARY | 2024-01-16 23:05 | XMS_ITS | Patient Health Record ---
Author Organization [facility] Address [address], [place] [id number] Support Name Relationship Address Phone Ronan Bergman [...] Coverage End Date [employer] [address] [facility] [place] [address] [id number] Ronan Bergman Self - patient is the insured MEDICAL (GENERAL) HISTORY Medical History History ICD Code Heartburn
[2024-01-16] MEDS: iohexoL 350 MG/ML 100 ML INFUS..BTL 70 ML IV (23:09)
[2024-01-16 23:15] VITALS: BP 154/81; PULSE 73; RESP 21; TEMP 36.9; O2SAT 95
[2024-01-16 23:16] LABS: MANUAL DIFF FLAG NO
[2024-01-16 23:17] LABS: Basophils Absolute Auto 0.1 X10*3/uL (0.0-0.2); Basophils Percent Auto 0.6 % (0-2); Eosinophils Absolute Auto 0.4 X10*3/uL (0.0-0.4); Eosinophils Percent Auto 4.9 % (0-4); Hematocrit 44.1 % (42.0-52.0); Hemoglobin 15.2 g/dl (14.0-18.0); Imm Gran Abs Auto 0.03 X10*3/uL (0.00-0.03); Imm Gran Pct Auto 0.4 % (0.0-0.4); Lymphocytes Absolute Auto 2.6 X10*3/uL (1.2-4.9); Lymphocytes Percent Auto 33.3 % (20-40); Mean Corpuscular HGB Conc 34.5 g/dl (31.0-36.0); Mean Corpuscular Hemoglobin 30.8 pg (27.0-33.0); Mean Corpuscular Volume 89.5 fL (80.0-98.0); Mean Platelet Volume 9.5 fL (9.4-12.4); Monocytes Absolute Auto 0.6 X10*3/uL (0.1-1.2); Monocytes Percent Auto 7.6 % (2-11); Neutrophils Absolute Auto 4.2 x10*3/uL (2.0-8.3); Neutrophils Percent Auto 53.2 % (45-73); Platelet Count 199 X10*3/uL (160-400); Red Blood Count 4.93 X10*6/uL (4.60-5.80); White Blood Count 7.8 X10*3/uL (4.8-10.8)
[2024-01-16 23:31] LABS: Anion Gap 14 (12-20); Blood Urea Nitrogen 21 mg/dL (9-16); Calcium 9.3 mg/dL (8.4-10.2); Carbon Dioxide 26 mmol/L (22-29); Chloride 107 mmol/L (96-108); Cholesterol 114 mg/dL (<200); Creatinine Clr Calc Pharmacy 70.4; Estimated Glomerular Filt Rate > 60; Ethanol < 10 mg/dL; Glucose Random 108 mg/dL (60-115); HDL Cholesterol 34 mg/dL (>40); LDL Cholesterol Calculated 59 mg/dL (<100); Potassium 3.9 mmol/L (3.3-5.1); Sodium 143 mmol/L (135-145); Triglycerides 107 mg/dL (<150)
[2024-01-16 23:33] LABS: Prothrombin Time 11.7 SEC (11.1-13.3)
[2024-01-16 23:38] LABS: Stroke Lab Use COMPLETE
[2024-01-16 23:44] LABS: Troponin-I High Sensitivity < 2.7 ng/L (<3.5-35.0)
[2024-01-17 00:31] VITALS: BP 148/81; PULSE 65
[2024-01-17 00:32] VITALS: BP 136/73; BP 139/81; PULSE 61; PULSE 67
[2024-01-17 00:45] LABS: Amphetamine Screen Urine Not Detected (Not Detect); Barbiturates, Urine Not Detected (Not Detect); Benzodiazepines Screen Urine Not Detected (Not Detect); Buprenorphine Scr Not Detected (Not Detect); Cannabinoid Screen Urine Not Detected (Not Detect); Cocaine Screen Urine Not Detected (Not Detect); Fentanyl, urine Not Detected (Not Detect); Methadone Screen, Urine Not Detected (Not Detect); Opiate Screen Urine Not Detected (Not Detect); Oxycodone Screen Urine Not Detected (Not Detect); Phencyclidine Screen Urine Not Detected (Not Detect)
[2024-01-17] MEDS: Meclizine HCl 25 MG TABLET PO (00:47)
[2024-01-17 01:14] VITALS: BP 146/86; PULSE 56; RESP 0; TEMP 36.8; O2SAT 94
[2024-01-17 01:38] VITALS: BP 146/86; PULSE 56; RESP 20; TEMP 36.8; O2SAT 94
== END 2024-01-17 01:25 | disposition home or self-care (01) ==
PROVIDERS: Physician Assistant; Emergency Provider Emergency Medicine; PCP Physician Assistant
DX: R42 Dizziness and giddiness (principal); M79.605 Pain in left leg; M71.22 Synovial cyst of popliteal space [Baker], left knee; E78.5 Hyperlipidemia, unspecified; Z86.73 Personal history of transient ischemic attack (TIA), and cerebral infarction without residual deficits; Z79.899 Other long term (current) drug therapy
CPT/HCPCS: 36415; 70450; 70496; 70498; 80048; 80061; 80307; 82947; 84484; 85025; 85610; 85730; 93005; 93971; 99285; Q9967

== ENCOUNTER → 2024-01-16 22:39 | Outpatient (BNV) | payer OTHER, SELFPAY | PROVIDERS: Emergency Provider Emergency Medicine; PCP Physician Assistant; Visit Provider Internal Medicine Cardiovascular Disease | DX: R42 Dizziness and giddiness (principal) | CPT/HCPCS: 93010 ==

== ENCOUNTER 2024-01-23 13:37 | Outpatient (REF) | payer MEDICAID, SELFPAY ==
[2024-01-27 17:37] LABS: Acetylcholine Receptor Binding <0.30 nmol/L
[2024-01-30 13:28] LABS: Acetylcholine Recept. Blocking <15 (<15)
[2024-02-08 18:58] LABS: Acetylcholine Recep Modulating <1
== END 2024-01-23 13:38 | disposition home or self-care (01) ==
LOC: HO.LAB 13:37
PROVIDERS: PCP Physician Assistant; Visit Provider Psychiatry & Neurology Neurology
DX: R47.1 Dysarthria and anarthria (principal)
CPT/HCPCS: 36415; 86041; 86042; 86043

== ENCOUNTER 2024-05-17 11:05 | Emergency (ER) | payer MEDICAID, SELFPAY ==
[2024-05-17 11:30] VITALS: BP 137/75; PULSE 76; RESP 18; TEMP 36.4; O2SAT 97; BMI 29.3
--- NOTE | 2024-05-17 11:30 | ED_ITS ---
HPI - Nausea/Vomiting/Diarrhea General Chief complaint: Nausea/Vomiting/Diarrhea Stated complaint: vomiting Time Seen by Provider: 05/17/24 18:10 Source: patient, RN notes reviewed and old records reviewed Mode of arrival: ambulatory Limitations: no limitations History of Present Illness ED Provider: James MARTINEZ Narrative: 69-year-old male presents for evaluation of diarrhea. Patient reports 3 days worth of diarrhea. He had an episode of vomiting around 3:30 a.m. this morning He denies any abdominal pain, fevers, chills. He is not noticed any black or bloody stool. He is on a baby aspirin but does not take anticoagulation. His sister had similar symptoms with diarrhea and vomiting. The patient also reports that he was started on Ozempic about 12 weeks ago with his last dose being 3 days ago. He is unsure if his diarrhea and vomiting started before or after his last dose of Ozempic He denies any recent travel or antibiotic use Associated nausea: Yes Related Data Previous Rx's ?Medication ?Instructions ?Recorded ibuprofen 600 mg tablet 600 mg PO Q8H PRN fever or pain 02/27/21 #10 tabs levofloxacin 500 mg tablet 500 mg PO DAILY #10 tabs 02/27/21 atorvastatin 40 mg tablet 40 mg PO DAILY #30 tabs 11/21/23 clopidogrel 75 mg tablet (Plavix) 75 mg PO DAILY #30 tabs 11/21/23 meclizine 25 mg tablet 25 mg PO DAILY PRN dizziness #14 01/16/24 tabs loperamide 2 mg capsule (Imodium 2 mg PO Q4H PRN loose stool #20 05/17/24 A-D) caps ondansetron 4 mg disintegrating 4 mg PO Q8H PRN nausea and 05/17/24 tablet vomiting #20 tabs Allergies Allergy/AdvReac Type Severity Reaction Status Date / Time No Known Allergies Allergy Verified 05/17/24 11:30 Review of Systems 2 Constitutional: Constitutional: Denies body ache(s), Denies chills, Denies fever(s) and Denies headache(s) Eyes: Eyes: Denies blurry vision ENT: Denies vertigo, Denies dizziness and Denies headache(s) Cardiovascular: Cardiovascular: Denies chest pain and Denies dyspnea Respiratory: Respiratory: Denies cough and Denies dyspnea Gastrointestinal: Gastrointestinal: Denies abdominal pain, Denies melena, Denies hematochezia, Reports diarrhea, Reports loose stools, Reports nausea and Reports vomiting Musculoskeletal: Musculoskeletal: Denies back pain Integumentary/Breasts: Skin/Breast: Denies rash Neurologic: Denies vertigo, Denies dizziness and Denies headache(s) Psychiatric: Psychiatric: Denies anxiety PMFSH Past Medical History Medical History No known health problems Social History Social History Advance Directives: No Advance Directives Information Provided: No Do you have a plan to hurt others: No Plan Physical Exam 2 Vital Signs: Vital Signs: Last Vital Signs Temp 97.6 F 05/17/24 11:30 Pulse 76 05/17/24 11:30 Resp 18 05/17/24 11:30 BP 137/75 05/17/24 11:30 Pulse Ox 97 05/17/24 11:30 O2 Del Method Room Air 05/17/24 11:30 BMI result Body Mass Index 29.3 Const: General: healthy appearing, comfortable, no acute distress, alert and awake Nutritional Appearance: well nourished Orientation/consciousness: p atient oriented x3 HEENT: Head: Yes normocephalic and Yes atraumatic Eyes: Eyelids: Yes eyelids normal Conjunctivae: conjunctivae normal S clerae: sclerae normal Corneas: corneas normal Pupils: Equal, round and reactive pupils present EOM: EOMs intact bilaterally Neck: Neck: Yes full ROM Resp: Effort & Inspection: normal respiratory effort, able to speak in complete sentences and not labored Cardio: Rate: regular rate Rhythm: regular rhythm GI: Inspection: No distended Palpation (GI): Soft to palpation, not firm, nontender, no guarding and not rigid Skin: General skin exam: elasticity normal Neuro: General: patient oriented x3 Cranial nerves: Yes Equal, round and reactive pupils present and Yes Bilaterally intact EOM present Cognition (Neuro): normal cognition Course Course Course Narrative: This is an RME: Additional HPI, ROS, PE not included below will be deferred to primary provider. RME assessment and note performed by: Fatimah Agarwal PA-C This is a [id number]-male,with a hx of CVA, hyperlipidemia, bph, GERD, obesity, who presents to the ER with complaints of nausea, vomiting and diarrhea. Diarrhea started 2-3 days ago. Now having vomiting. No fevers, cough, chills, abdominal pain, chest pain or shortness of breath. No bloody or black stool. Plan: Labs, EKG, viral swabs, further ER eval needed Medical Decision Making Medical Decision Making [facility] Narrative: 69-year-old male presents for evaluation of nonbloody diarrhea. His symptoms started 3 days ago. He has no risk factors for C diff or other infectious diarrhea. He has no abdominal pain or tenderness to suggest colitis or diverticulitis. I do not suspect a bowel obstruction as the patient is still having bowel movements. He is able to tolerate eating. His labs are reassuring, he has no leukocytosis but does have an elevation of neutrophils. This may be related to a viral illness, is difficult to say if his related to the Ozempic but I feel this is less likely as he has been on this for 12 weeks with no such symptoms. We will treat him symptomatically for a viral illness causing his diarrhea. The patient was given return precautions. Differential Diagnosis Differential Diagnoses: The differential diagnosis associated with the presentation includes Gastroenteritis Diarrhea Viral syndrome Medication side effect C diff less likely Lab Data [facility] Lab Attestation statement: I reviewed the patient's lab results. No leukocytosis or anemia. Normal platelet count. No electrolyte abnormalities 05/17/24 12:09 05/17/24 12:09 Labs: Lab Results 05/17/24 Range/Units 12:09 WBC 8.7 (4.8-10.8) X10*3/uL RBC 5.10 (4.60-5.80) X10*6/uL Hgb 16.1 (14.0-18.0) g/dl Hct 46.3 (42.0-52.0) % MCV 90.8 (80.0-98.0) fL MCH 31.6 (27.0-33.0) pg MCHC 34.8 (31.0-36.0) g/dl RDW 12.4 (11.0-16.0) % Plt Count 200 (160-400) X10*3/uL MPV 9.0 L (9.4-12.4) fL Immature Gran % (Auto) 0.3 (0.0-0.4) % Neut % (Auto) 76.1 H (45-73) % Lymph % (Auto) 16.3 L (20-40) % [place] % (Auto) 4.5 (2-11) % Eos % (Auto) 2.7 (0-4) % Baso % (Auto) 0.1 (0-2) % Lymph # (Auto) 1.4 (1.2-4.9) X10*3/uL [place] # (Auto) 0.4 (0.1-1.2) X10*3/uL Eos # (Auto) 0.2 (0.0-0.4) X10*3/uL Baso # (Auto) 0.0 (0.0-0.2) X10*3/uL Abs Immat Gran (auto) 0.03 (0.00-0.03) X10*3/uL Absolute Neuts (auto) 6.6 (2.0-8.3) x10*3/uL Absolute Nucleated RBC 0.000 (0.0-0.012) X10*3/uL Nucleated RBC % (auto) 0.0 (0.0-0.2) /100WBC Sodium 140 (135-145) mmol/L Potassium 3.6 (3.3-5.1) mmol/L Chloride 109 H (96-108) mmol/L Carbon Dioxide 25 (22-29) mmol/L Anion Gap 10 L (12-20) BUN 14 (9-16) mg/dL Creatinine 1.27 (0.5-1.4) mg/dL Estim Creat Clear Calc 64.6 Estimated GFR 56 Random Glucose 105 (60-115) mg/dL Calcium 9.0 (8.4-10.2) mg/dL Magnesium 1.6 (1.6-2.6) mg/dL Total Bilirubin 0.8 (0.0-1.0) mg/dL AST 21 (5-37) U/L ALT 19 (0-40) U/L Alkaline Phosphatase 76 (39-117) U/L Troponin I High Sens < 2.7 (<3.5-35.0) ng/L Total Protein 6.9 (6.5-8.0) g/dL Albumin 3.8 (3.5-5.0) g/dL Lipase 17 (8-78) U/L Influenza Type A (PCR) NEGATIVE (Negative) Influenza Type B (PCR) NEGATIVE (Negative) RSV RNA Qual (PCR) NEGATIVE (Negative) SARS-CoV-2 RNA (RT-PCR) NEGATIVE (Negative) Tests considered The following testing was considered but not selected: Consider CT scan of the abdomen pelvis, however the patient's exam is benign and labs are reassuring, I doubt surgical abdomen. Discharge Plan Discharge Clinical Impression: Diarrhea Patient Disposition: Home, Self-Care Instructions: Acute Diarrhea (ED) Additional Instructions: Your workup in the ER today was reassuring. Your symptoms may be related to a viral illness. The diarrhea also may be a side effect of Ozempic You may use Zofran as needed for nausea or vomiting Drink lots of fluids A diet of bananas, rice, applesauce, toast can help slow down the diarrhea. You may also use Imodium for diarrhea Prescriptions: New loperamide [Imodium A-D] 2 mg capsule 2 mg PO Q4H PRN (Reason: loose stool) Qty: 20 0RF Rx Instructions: administer after each loose stool until symptoms controlled; do not exceed 8 mg per 24 hrs ondansetron 4 mg tablet,disintegrating 4 mg PO Q8H PRN (Reason: nausea and vomiting) Qty: 20 0RF No Action levofloxacin 500 mg tablet 500 mg PO DAILY Qty: 10 0RF ibuprofen 600 mg tablet 600 mg PO Q8H PRN (Reason: fever or pain) Qty: 10 0RF clopidogrel [Plavix] 75 mg tablet 75 mg PO DAILY Qty: 30 0RF atorvastatin 40 mg tablet 40 mg PO DAILY Qty: 30 0RF meclizine 25 mg tablet 25 mg PO DAILY PRN (Reason: dizziness) Qty: 14 0RF Print Language: East Timorese
--- NOTE | 2024-05-17 11:32 | ECG_ITS ---
Test Reason : WEAKNESS N/V Blood Pressure : / mmHG Vent. Rate : 075 BPM Atrial Rate : 075 BPM P-R Int : 162 ms QRS Dur : 096 ms QT Int : 362 ms P-R-T Axes : 069 017 036 degrees QTc Int : 404 ms Normal sinus rhythm Normal ECG When compared with ECG of 16-JAN-2024 23:07, No significant change was found Referred By: Fatimah Agarwal Electronically Signed By:YEIMI WEAVER
[2024-05-17 12:14] LABS: MANUAL DIFF FLAG NO
[2024-05-17 12:16] LABS: Basophils Percent Auto 0.1 % (0-2); Eosinophils Absolute Auto 0.2 X10*3/uL (0.0-0.4); Eosinophils Percent Auto 2.7 % (0-4); Hematocrit 46.3 % (42.0-52.0); Hemoglobin 16.1 g/dl (14.0-18.0); Imm Gran Abs Auto 0.03 X10*3/uL (0.00-0.03); Imm Gran Pct Auto 0.3 % (0.0-0.4); Lymphocytes Absolute Auto 1.4 X10*3/uL (1.2-4.9); Lymphocytes Percent Auto 16.3 % (20-40); Mean Corpuscular HGB Conc 34.8 g/dl (31.0-36.0); Mean Corpuscular Hemoglobin 31.6 pg (27.0-33.0); Mean Corpuscular Volume 90.8 fL (80.0-98.0); Monocytes Absolute Auto 0.4 X10*3/uL (0.1-1.2); Monocytes Percent Auto 4.5 % (2-11); Neutrophils Absolute Auto 6.6 x10*3/uL (2.0-8.3); Neutrophils Percent Auto 76.1 % (45-73); Platelet Count 200 X10*3/uL (160-400); Red Cell Distribution Width 12.4 % (11.0-16.0); White Blood Count 8.7 X10*3/uL (4.8-10.8)
[2024-05-17 12:29] LABS: Alanine Aminotransferase 19 U/L (0-40); Albumin Level 3.8 g/dL (3.5-5.0); Alkaline Phosphatase 76 U/L (39-117); Anion Gap 10 (12-20); Aspartate Amino Transferase 21 U/L (5-37); Bilirubin Total 0.8 mg/dL (0.0-1.0); Blood Urea Nitrogen 14 mg/dL (9-16); Carbon Dioxide 25 mmol/L (22-29); Chloride 109 mmol/L (96-108); Creatinine Clr Calc Pharmacy 64.6; Estimated Glomerular Filt Rate 56; Glucose Random 105 mg/dL (60-115); Lipase 17 U/L (8-78); Magnesium 1.6 mg/dL (1.6-2.6); Potassium 3.6 mmol/L (3.3-5.1); Sodium 140 mmol/L (135-145); Total Protein 6.9 g/dL (6.5-8.0)
[2024-05-17 12:37] LABS: Troponin-I High Sensitivity < 2.7 ng/L (<3.5-35.0)
[2024-05-17 12:54] LABS: Influenza A PCR NEGATIVE (Negative); Influenza B PCR NEGATIVE (Negative); Resp Syncy Virus RNA Qual PCR NEGATIVE (Negative); SARS COV2 PCR INHOUSE NEGATIVE (Negative)
--- OUTSIDE RECORDS SUMMARY | 2024-05-17 18:04 | XMS_ITS | Patient Health Record ---
Author Organization [facility] Address [address], [place] [id number] Support Name Relationship Address Phone Ronan Bergman Guarantor Unknown Unavailable Reason For Referral No Information Medications Medication SIG (Take, Route, Fr equency, Duration) Notes Start Date End Date Status PriLOSEC 40 mg 1 cap(s) orally once a day for 30 day(s) 06/19/2023 Active Plan Of Treatment No Information Insurance Providers Payer Name Payer Address Payer Phone Subscriber Number Group Number Insured Name Patient Relationship to Insured Coverage Start Date Coverage End Date [employer] [address] [facility] [place] [address] [id number] Ronan Bergman Self - patient is the insured Medical (General) History Medical History History ICD Code Heartburn
[2024-05-17 18:41] VITALS: BP 135/74; PULSE 73; RESP 18; TEMP 528.4; TEMP 983.1; O2SAT 95
[2024-05-17 19:00] VITALS: BP 135/74; PULSE 73; RESP 18; TEMP 36.7; O2SAT 95
== END 2024-05-17 19:00 | disposition home or self-care (01) ==
PROVIDERS: Physician Assistant Medical; Emergency Provider Emergency Medicine; PCP Physician Assistant
DX: R11.2 Nausea with vomiting, unspecified (principal); R19.7 Diarrhea, unspecified; R53.1 Weakness; Z79.899 Other long term (current) drug therapy; Z03.818 Encounter for observation for suspected exposure to other biological agents ruled out; Z79.85 Long-term (current) use of injectable non-insulin antidiabetic drugs
CPT/HCPCS: 0241U; 80053; 83690; 83735; 84484; 85025; 93005; 99283

== ENCOUNTER → 2024-05-17 11:32 | Outpatient (BNV) | payer MEDICAID, SELFPAY | PROVIDERS: Emergency Provider Emergency Medicine; PCP Physician Assistant; Visit Provider Internal Medicine | DX: R53.1 Weakness (principal); R11.2 Nausea with vomiting, unspecified | CPT/HCPCS: 93010 ==

== ENCOUNTER 2025-02-24 00:44 | Emergency (ER) | payer MEDICARE, MEDICAID, SELFPAY ==
--- NOTE | ~2025-02-24 | XR_ITS ---
CLINICAL HISTORY: chest pain EXAM: Two views of the chest. COMPARISON: CR/NC/SR - XR CHEST 2 VIEWS - 11/21/23 20:01 EDT FINDINGS: Normal cardiac, mediastinal, and hilar contours. Normal heart size. No pleural effusion or pneumothorax. Hyperexpanded lungs consistent with COPD. No acute infiltrate. No acute bone finding. IMPRESSION: 1. No acute cardiopulmonary process demonstrated. This document has been electronically signed by: Bolivar Ricardo MD on 02/24/2025 01:58:24
[2025-02-24 00:47] VITALS: BP 141/74; PULSE 80; RESP 18; TEMP 36.6; O2SAT 99; BMI 27.0
--- NOTE | 2025-02-24 01:05 | ED.GENADULT ---
HPI - General Adult General Chief complaint: General Medical Stated complaint: stroke like sxs, slurred speech, trembling hands Time Seen by Provider: 02/24/25 01:05 Source: patient and family (niece) Mode of arrival: ambulatory Limitations: no limitations History of Present Illness ED Provider: Dr. Mikaela Ling HPI narrative: 69-year-old male with a history of hyperlipidemia presenting with slurring of his speech, intermittent episodes of confusion and memory loss ongoing for the last several months. Patient came to the emergency department tonight because he ?thought there would be not much of a wait at this hour?. Has not seen his primary care doctor about this issue. Has been seen previously by a neurologist but again has not seen that doctor either. States that he was diagnosed with a stroke about a year ago but when he went to see a neurologist, they told him that he really did not have a stroke. He continues to take a baby aspirin daily along with atorvastatin. Describes episodic episodes of dysarthria and confusion. His niece is concerned because he was having issues with driving. Admits that he will stop at a green light and go straight through a red light without stopping. Patient states that he has not color blind. States he thinks these episodes happened because ?I get really tired?. Admits that he has a lot of stress in his life lately denies headaches associated with this. No reported weakness in the arms or legs. No syncope or near-syncope. Denies chest pain, difficulty breathing, abdominal pain, nausea, vomiting, diarrhea, bowel changes or urinary complaints. No known sick contacts or travel. Has been feeling well otherwise. No trauma. Related Data Previous Rx's ?Medication ?Instructions ?Recorded ibuprofen 600 mg tablet 600 mg PO Q8H PRN fever or pain 02/27/21 #10 tabs levofloxacin 500 mg tablet 500 mg PO DAILY #10 tabs 02/27/21 atorvastatin 40 mg tablet 40 mg PO DAILY #30 tabs 11/21/23 clopidogrel 75 mg tablet (Plavix) 75 mg PO DAILY #30 tabs 11/21/23 meclizine 25 mg tablet 25 mg PO DAILY PRN dizziness #14 01/16/24 tabs loperamide 2 mg capsule (Imodium 2 mg PO Q4H PRN loose stool #20 05/17/24 A-D) caps ondansetron 4 mg disintegrating 4 mg PO Q8H PRN nausea and 05/17/24 tablet vomiting #20 tabs Allergies Allergy/AdvReac Type Severity Reaction Status Date / Time No Known Allergies Allergy Verified 02/24/25 00:56 Review of Systems Review of Systems: as per HPI, full review of systems performed and negative but for the above mentioned pertinent positives and negatives. PMFSH Past Medical History Medical History Dysarthria Social History Social History Advance Directives: No Advance Directives Information Provided: No Physical Exam ED Exam Exam: GENERAL: Chronically ill-appearing, conversant, no acute distress. SKIN: Normal skin color for ethnicity, warm, dry, no rashes noted. HEENT: Normocephalic, atraumatic, no stridor, posterior oropharynx nonerythematous, EOMI. NECK: Soft, supple, full ROM, midline structures nontender, no step-offs, no deformities, no lymphadenopathy. CHEST: Heart regular rate and rhythm, no murmurs, symmetric chest rise and fall. PULMONARY: Clear to auscultation bilaterally, no labored breathing, no wheezes/rhales/ rhonchi. ABDOMINAL: Soft, nondistended, nontender, positive bowel sounds in all quadrants. : Deferred. MUSCULOSKELETAL: Normal tone, full range of motion, no deformities, no peripheral edema. NEURO: Alert and oriented to person, CN II through XII intact, no focal neurologic deficits. PSYCHIATRIC: Flat affect, fluid speech, appropriate demeanor. Vital Signs: Vital Signs - 24 hr 02/24/25 00:47 02/24/25 03:13 02/24/25 03:52 Temperature 97.8 F 98.6 F 98.6 F Pulse Rate 80 78 78 Respiratory Rate 18 16 16 Blood Pressure 141/74 H 161/83 H 161/83 H Pulse Oximetry 99 98 98 Oxygen Delivery Method Room Air Room Air Room Air BMI result Body Mass Index 27.0 Medical Decision Making Medical Decision Making MDM Narrative: Patient presents today with a chief complaint of episodic altered mental status. Differential diagnosis for AMS is incredibly broad and includes infection, intracranial process such as hemorrhage, stroke or mass, electrolyte abnormality, hypercarbia, hypoxia, toxic encephalopathy, among many others. Broad-based workup was initiated to further evaluate the etiology of patient's symptoms based on the above exam and history. I had an extensive discussion with the patient and his niece who brought him to the hospital today regarding signs and symptoms of stroke, the chronicity of his issues which date back to last year. Sounds like he has been dealing with the same symptoms that brought him to the hospital last year, prompting neuro consultation. He was told by the neurologist that he actually never had a stroke but continues to take a baby aspirin and atorvastatin daily. I suspect that he is having progression of dementia. He has no new neurologic symptoms and his NIHSS today 0. There is no dysarthria on my exam. If he is having TIAs, his symptoms are totally resolving and he is on the appropriate treatment. Additionally, he has close outpatient follow up with Neurology and primary care. Using shared decision making, plan for discharge home to follow-up with primary care and neurology. We had an extensive discussion regarding signs and symptoms of stroke and went to come to the hospital. I gave him a sheet that describes recognition of a stroke. Patient understands and agrees with plan for discharge. Discharged home in stable condition. Differential Diagnosis Differential Diagnoses: The differential diagnosis associated with the presentation includes (as above) Admission/Observation Consideration of admission/observation: Escalation of care including admission/observation considered Lab Data MDM Lab Attestation statement: I reviewed the patient's lab results. 02/24/25 01:18 02/24/25 01:18 Labs: Lab Results 02/24/25 Range/Units 01:18 WBC 7.1 (4.8-10.8) X10*3/uL RBC 4.41 L (4.60-5.80) X10*6/uL Hgb 14.0 (14.0-18.0) g/dl Hct 39.9 L (42.0-52.0) % MCV 90.5 (80.0-98.0) fL MCH 31.7 (27.0-33.0) pg MCHC 35.1 (31.0-36.0) g/dl RDW 12.9 (11.0-16.0) % Plt Count 185 (160-400) X10*3/uL MPV 9.2 L (9.4-12.4) fL Immature Gran % (Auto) 0.3 (0.0-0.4) % Neut % (Auto) 66.9 (45-73) % Lymph % (Auto) 21.9 (20-40) % [place] % (Auto) 7.2 (2-11) % Eos % (Auto) 3.4 (0-4) % Baso % (Auto) 0.3 (0-2) % Lymph # (Auto) 1.6 (1.2-4.9) X10*3/uL [place] # (Auto) 0.5 (0.1-1.2) X10*3/uL Eos # (Auto) 0.2 (0.0-0.4) X10*3/uL Baso # (Auto) 0.0 (0.0-0.2) X10*3/uL Abs Immat Gran (auto) 0.02 (0.00-0.03) X10*3/uL Absolute Neuts (auto) 4.8 (2.0-8.3) x10*3/uL Absolute Nucleated RBC 0.000 (0.0-0.012) X10*3/uL Nucleated RBC % (auto) 0.0 (0.0-0.2) /100WBC PT 11.3 (10.9-12.4) SEC INR 1.0 (0.9-1.1) APTT 25.8 L (26.7-34.1) SEC Sodium 142 (135-145) mmol/L Potassium 3.8 (3.3-5.1) mmol/L Chloride 109 H (96-108) mmol/L Carbon Dioxide 25 (22-29) mmol/L Anion Gap 12 (12-20) BUN 21 H (9-16) mg/dL Creatinine 1.19 (0.5-1.4) mg/dL Estim Creat Clear Calc 64.3 Estimated GFR > 60 Random Glucose 100 (60-115) mg/dL Calcium 8.7 (8.4-10.2) mg/dL Total Bilirubin 0.6 (0.0-1.0) mg/dL AST 27 (5-37) U/L ALT 28 (0-40) U/L Alkaline Phosphatase 67 (39-117) U/L Troponin I High Sens 3.4 (<3.5-35.0) ng/L Total Protein 6.5 (6.5-8.0) g/dL Albumin 3.7 (3.5-5.0) g/dL Independent Interpretation I performed an independent interpretation of an: EKG and Plain X-Ray Interpretation: My independent interpretation of the chest x-ray reveals no consolidations, pulmonary edema, pleural effusion, pneumothorax, obvious bony abnormalities. My independent interpretation of the ECG reveals normal sinus rhythm with rate of 62, normal axis, normal intervals, no ST elevations or depressions to suggest ischemic changes, LVH, PVCs, relatively unchanged from previous on 05/17/2024. Radiology Impression Discussion of test interpretation with radiology: I have reviewed the radiologist's reading. Independent Historian Clinical information obtained from an independent historian. History obtained from or confirmed by: Other (niece) External Record Review External record reviewed: Inpatient record, Prior outpatient labs and Prior outpatient radiology Chronic Conditions Patient?s care impacted by: Other (Hyperlipidemia,) Discharge Plan Discharge Clinical Impression: Dysarthria, Intermittent confusion Patient Disposition: Home, Self-Care Additional Instructions: Call your neurologist today to follow-up as soon as possible. You should also have a primary care doctor visit to discuss your intermittent episodes of confusion. Return to the emergency department with any new or worsening symptoms including: Facial droop, difficulty with word finding, worsening slurred speech, numbness/tingling/weakness on 1 side your body, any new symptom that concerns you. Call 911 with any medical emergency. Prescriptions: No Action levofloxacin 500 mg tablet 500 mg PO DAILY Qty: 10 0RF ibuprofen 600 mg tablet 600 mg PO Q8H PRN (Reason: fever or pain) Qty: 10 0RF loperamide [Imodium A-D] 2 mg capsule 2 mg PO Q4H PRN (Reason: loose stool) Qty: 20 0RF Rx Instructions: administer after each loose stool until symptoms controlled; do not exceed 8 mg per 24 hrs ondansetron 4 mg tablet,disintegrating 4 mg PO Q8H PRN (Reason: nausea and vomiting) Qty: 20 0RF clopidogrel [Plavix] 75 mg tablet 75 mg PO DAILY Qty: 30 0RF atorvastatin 40 mg tablet 40 mg PO DAILY Qty: 30 0RF meclizine 25 mg tablet 25 mg PO DAILY PRN (Reason: dizziness) Qty: 14 0RF Interventions: ED Discharge Assessment Last Done: 02/24/25 03:52 Discharge Date/Time: 02/24/25 03:53 Print Language: Romanian
[2025-02-24 01:23] LABS: Hematocrit 39.9 % (42.0-52.0); Hemoglobin 14.0 g/dl (14.0-18.0); Imm Gran Abs Auto 0.02 X10*3/uL (0.00-0.03); Imm Gran Pct Auto 0.3 % (0.0-0.4); Lymphocytes Absolute Auto 1.6 X10*3/uL (1.2-4.9); MANUAL DIFF FLAG NO; Mean Corpuscular HGB Conc 35.1 g/dl (31.0-36.0); Mean Corpuscular Hemoglobin 31.7 pg (27.0-33.0); Mean Corpuscular Volume 90.5 fL (80.0-98.0); NRBC Abs Auto 0.000 X10*3/uL (0.0-0.012); NRBC Pct Auto 0.0 /100WBC (0.0-0.2); Platelet Count 185 X10*3/uL (160-400); Red Blood Count 4.41 X10*6/uL (4.60-5.80); White Blood Count 7.1 X10*3/uL (4.8-10.8)
--- NOTE | 2025-02-24 01:31 | ECG_ITS ---
Test Reason : WEAKNESS Blood Pressure : */* mmHG Vent. Rate : 62 BPM Atrial Rate : 62 BPM P-R Int : 154 ms QRS Dur : 92 ms QT Int : 396 ms P-R-T Axes : 79 28 47 degrees QTcB Int : 401 ms Sinus rhythm with Premature supraventricular complexes Minimal voltage criteria for LVH, may be normal variant ( Sokolow-Diaz ) Borderline ECG When compared with ECG of 17-May-2024 11:56, Premature supraventricular complexes are now Present T wave amplitude has increased in Lateral leads Referred By: Mikaela Ling Electronically Signed By: CASEY ALVAREZ MD
[2025-02-24 01:32] LABS: INTERNATIONAL NORM RATIO 1.0 (0.9-1.1); Prothrombin Time 11.3 SEC (10.9-12.4)
[2025-02-24 01:35] LABS: Partial Thromboplastin Time 25.8 SEC (26.7-34.1)
[2025-02-24 01:40] LABS: Alanine Aminotransferase 28 U/L (0-40); Albumin Level 3.7 g/dL (3.5-5.0); Alkaline Phosphatase 67 U/L (39-117); Anion Gap 12 (12-20); Aspartate Amino Transferase 27 U/L (5-37); Blood Urea Nitrogen 21 mg/dL (9-16); Calcium 8.7 mg/dL (8.4-10.2); Carbon Dioxide 25 mmol/L (22-29); Chloride 109 mmol/L (96-108); Creatinine Clr Calc Pharmacy 64.3; Estimated Glomerular Filt Rate > 60; Potassium 3.8 mmol/L (3.3-5.1); Sodium 142 mmol/L (135-145); Total Protein 6.5 g/dL (6.5-8.0)
--- OUTSIDE RECORDS SUMMARY | 2025-02-24 01:52 | XMS_ITS ---
Author Name [facility] Organization Unknown Care Team Organization Name Specialty Phone Email Start Date End Da te [facility] Dena Patrick Primary [facility] 06/27/2022 024
--- OUTSIDE RECORDS SUMMARY | 2025-02-24 01:52 | XMS_ITS | Clinical Summary ---
Author Organization [facility] [address] [facility] Address [address] [place] [address] Phone Care Team Providers Care Data Base Administrator Name Role Phone Pita Lopes MD Primary Care Provider Allergies Active Allergy Reactions Criticality Noted Date Comments Other 01/25/2022 seasonal Medications BABY ASPIRIN ORAL Take by mouth. Active semaglutide (WEGOVY) 2.4 mg/0.75 mL injection pen Inject 2.4 mg under the skin every 7 (seven) days. Active ondansetron ODT (ZOFRAN-ODT) 4 mg disintegrating tabletIndications: Nausea Dissolve 1 tablet (4 mg total) on top of the tongue every 8 (eight) hours if needed for nausea or vomiting. 30 tablet 5 Active fluticasone propionate (FLONASE) 50 mcg/actuation nasal spray Administer 2 sprays into each nostril 1 (one) time each day. Shake gently. Before first use, prime pump. After use, clean tip and replace cap. 16 g 5 5 026 Active tamsulosin (FLOMAX) 0.4 mg 24 hr capsule TAKE 1 CAPSULE BY MOUTH DAILY. TAKE 30 MINS AFTER SAME MEAL EVERY DAY. 90 capsule 1 5 Active omeprazole (PriLOSEC) [address] capsule TAKE 1 CAPSULE BY MOUTH EVERY DAY 90 capsule 1 5 Active atorvastatin (LIPITOR) 40 mg tabletIndications: Cerebral infarction, unspecified (CMS/HCC V24, CMS/HCC V28) TAKE 1 TABLET BY MOUTH EVERY DAY 90 tablet 1 5 Active Active Problems Problem Noted Date Diagnosed Date GERD (gastroesophageal reflux disease) 4 Hiatal hernia 06/13/2024 Anxiety 03/29/2019 Benign prostatic hyperplasia with nocturia 03/29 Depression 03/29/2019 Erectile dysfunction 03/29/2019 Hyperlipidemia 03/29/2019 SSBE (short-segment Solomon's esophagus) 019 Overview (06/13/2024): Per patient endoscopy due 2021 Immunizations Name Administration Dates Next Due DTaP (Infanrix) 6wks to less than 7yo 10/14/2013 Influenza trivalent, 0.5mL, preservative free (Fluarix; FluLaval; Fluzone) ages 6mo and older (Afluria) 3 years and older 02/27/2019,05/29/2008 Influenza, Unspecified 02/27/2019 Pneumococcal conjugate 13 va lent (Prevnar 13, PCV13) 2mo and older 08/31/2020 Td Tetanus diptheria (Tdvax) 7yo and older 04/19 Tdap Tetanus diptheria acell ular pertussis (Boostrix; Adacel) 7yo and older 10/14/2013 Surgical History Surgery Date Site/Laterality Comments HERNIA REPAIR PROCEDURE: HISTORICAL HERNIA REPAIR/ING KNEE SURGERY PROCEDURE: HISTORICAL KNEE SURGERY; COMMENT: Dr. Young Medical History Medical History Date Comments Solomon's esophagus DX:Solomon's esophagus GERD (gastroesophageal reflux disease) DX:GERD (gastroesophageal reflux disease) Hiatal hernia DX:Hiatal hernia Family History Medical History Relation Name Comments Heart attack Brother Hypertension Father Pancreatic cancer Maternal Grandfather Other: pacemaker Mother Breast cancer Paternal Grandmother No Known Problems Sister No Known Problems Son 1 No Known Problems Son 2 Relation Name Status Comments Brother Father Maternal Grandfather Mother Alive Paternal Grandmother Sister Alive Son 1 Alive Son 2 Alive Social History Tobacco Use Types Packs/Day Years Used Date Smoking Tobacco: Never Smokeless Tobacco: Never Tobacco Cessation:Counseling Given: No Alcohol Use Standard Drinks/Week Comments Yes 0 (1 standard drink = 0.6 oz pur e alcohol) Sex and Gender Information Value Date Recorded Sex Assigned at Not on file Legal Sex Male 3:17 PM EST Gender Identity Not on file Sexual Orientation Not on file Obstetrics History Last Filed Vital Signs Vital Sign Reading Time Taken Comments Blood Pressure 104/50 11/18/2024 1:30 PM EDT Pulse 56 11/18/2024 1:30 PM EDT Temperature 36.7 C (98.1 F) 11/18/2024 1:30 PM EDT Respiratory Rate - - Oxygen Saturation - - Inhaled Oxygen Concentration - - Weight 95.7 kg (211 lb) 11/18/2024 1:30 PM EDT Height 180.3 cm (5' 11 ) 11/01/2024 9:55 AM EDT Body Mass Index 29.43 11/01/2024 9:55 AM EDT Plan of Treatment Upcoming Encounters Date Type Department Care Team (Late st Contact Info) Description 05/09/2025 11:00 AM EST Office Visit Adult Medicine - [facility] [address] [place] [address] Pita Lopes MD [address] [place] [address] Health Maintenance Due Date Last Done Comments Zoster Vaccines (1 of 2) 2005 Pneumococcal Vaccine: 50+ Years (2 of 2 - PPSV23) 08/31/2021 08/31/2020 Colorectal Cancer Screening: Colonoscopy 05/28/2022 Falls Risk Assessment 05/28/2022 Medicare Annual Wellness Visit 05/28/2022 Social Influencers of Health Screening 05/28/2022 DTaP,Tdap,and Td Vaccines (4 - Td or Tdap) 10/15/2023 10/14/2013, 10/14/2013, 04/19/2004 Depression Screening 06/19/2024 04/01/2024 COVID-19 Vaccine (1 - 2023-2 5 season) 2025 Influenza Vaccine (#1) 2025 9, 02/27/2019, 05/29/2008 Cholesterol Screening (Lipid Panel) 11/01/2029 11/01/2024, 11/24/2023, 11/24/2023 RSV Immunization Adult Patients (1 - 1-dose 75+ series) 2030 Hepatitis C Screening Completed 08/31/2020 HIB Vaccines Aged Out No longer eligi ble based on patient's age to complete this topic HPV Vaccines Aged Out No longer eligi ble based on patient's age to complete this topic Hepatitis A Vaccines Aged Out No long er eligible based on patient's age to complete this topic Hepatitis B Vaccines Aged Out No long er eligible based on patient's age to complete this topic IPV Vaccines Aged Out No longer eligi ble based on patient's age to complete this topic MMR Vaccines Aged Out No longer eligi ble based on patient's age to complete this topic Meningococcal ACWY Vaccine Aged Out N o longer eligible based on patient's age to complete this topic Meningococcal B Vaccine Aged Out No l onger eligible based on patient's age to complete this topic RSV Immunization Patients Under 20 months Aged Out No longer eligible b ased on patient's age to complete this topic Varicella Vaccines Aged Out No longer eligible based on patient's age to complete this topic Procedures Procedure Name Priority Date/Time Associated Diagnosis Comments LIPID PANEL WITH REFLEX TO DIRECT LDL Routine 11/01/2024 10:39 AM EDT Dysarthria Hyperlipidemia, unspecified hyperlipidemia type DEPRESSION SCREENING Routine 04/01/2024 HEPATITIS C SCREENING Routine 08/31/2020 from Last 3 Months or Most Recently Relevant to Health Maintenance Results * Lipid panel with reflex to direct LDL (11/01/2024 10:39 AM EDT) Cholesterol 112 0 - 200 mg/dL LAB CHEMISTRY METHOD 11/01/2024 1:18 PM EDT [facility] Triglycerides 37 0 - 150 mg/dL LAB CHEMISTRY METHOD 11/01/2024 1:18 PM EDT [facility] HDL 56 >=40 mg/dL LAB CHEMISTRY METHOD 11/01/2024 1:18 PM EDT [facility] LDL Calculated 49 0 - 100 mg/dL LAB CHEMISTRY METHOD 11/01/2024 1:18 PM EDT [facility] VLDL Cholesterol Vini 7.4 mg/dL LAB CHEMISTRY METHOD 11/01/2024 1:18 PM EDT [facility] Non HDL Chol. (LDL+VLDL) 56 <145 mg/dL LAB CHEMISTRY METHOD 11/01/2024 1:18 PM EDT [facility] Chol/HDL Ratio 2.0 0.0 - 4.4 LAB CHEMISTRY METHOD 11/01/2024 1:18 PM EDT [facility] Blood Venous blood specimen / Unknown Venipuncture / Unknown 11/01/2024 10:39 AM EDT 11/01/2024 10:41 AM EDT us [facility] BLOOD ORDERABLES Final Re sult [facility] [address] [place] [address], * Depression Screening (04/01/2024) Depression Screening abstracted Historical Provider MD HEALTH MAINTENANCE Final Result * Hepatitis C Screening (08/31/2020) Hepatitis C Screening abstracted Historical Provider MD HEALTH MAINTENANCE Final Result from Last 3 Months or Most Recently Relevant to Health Maintenance Insurance MEDICAID - [place] [employer] MEDICARE Care Teams Data Base Administrator Relationship Specialty Start Date End Date Pita Lopes MD [address] [place] [address] PCP - General Internal Medicine 08/23/21
[2025-02-24 01:53] LABS: Troponin-I High Sensitivity 3.4 ng/L (<3.5-35.0)
[2025-02-24 03:13] VITALS: BP 161/83; PULSE 78; RESP 16; TEMP 37; O2SAT 98
[2025-02-24 03:52] VITALS: BP 161/83; PULSE 78; RESP 16; TEMP 37; O2SAT 98
== END 2025-02-24 03:53 | disposition home or self-care (01) ==
PROVIDERS: Emergency Provider Emergency Medicine; PCP Physician Assistant
DX: R47.1 Dysarthria and anarthria (principal); R41.0 Disorientation, unspecified; R07.9 Chest pain, unspecified; R42 Dizziness and giddiness; R47.81 Slurred speech; E78.5 Hyperlipidemia, unspecified
CPT/HCPCS: 36415; 71046; 80053; 84484; 85025; 85610; 85730; 93005; 99283; 99284

== ENCOUNTER → 2025-02-24 01:31 | Outpatient (BNV) | payer MEDICARE, MEDICAID, SELFPAY | PROVIDERS: Emergency Provider Emergency Medicine; PCP Physician Assistant; Visit Provider Radiology Diagnostic Radiology | DX: R07.9 Chest pain, unspecified (principal) | CPT/HCPCS: 71046 ==

== ENCOUNTER → 2025-02-24 01:31 | Outpatient (BNV) | payer MEDICARE, MEDICAID, SELFPAY | PROVIDERS: Emergency Provider Emergency Medicine; PCP Physician Assistant; Visit Provider Internal Medicine Cardiovascular Disease | DX: I49.1 Atrial premature depolarization (principal) | CPT/HCPCS: 93010 ==

== ENCOUNTER 2025-02-26 10:09 | Outpatient (AMB) | payer MEDICARE, MEDICAID, SELFPAY ==
--- NOTE | 2025-02-26 10:14 | A.OFFVIS_ITS ---
Intake Visit Reasons: 1 yr and hospital follow up Allergies No Known Allergies Allergy (Verified 02/24/25 00:56) HPI Comments Details: 69 years old man who was seen in January of 2024 with difficulty speaking for few months. When I saw him, it was already getting better. He had been to emergency room couple of times and had imaging performed. MRI of brain revealed minimal microvascular disease but no acute lesion. CTA of brain and neck did not reveal any significant large vessel disease. CTA of brain revealed mild diffuse cerebral atrophy with microvascular disease. Acetyl choline receptor antibody titers were negative. He is presenting with changes in speech and coordination. The primary complaint is dysarthria, described as slurred speech episodes with intermittent presentation. These speech disturbances initiated after the last clinic visit, occurring sporadically without regular triggers. The patient also reports hand tremors, particularly during periods of anxiety or insufficient sleep. He denies any swallowing difficulties and confirms being cautious to prevent falls, further reporting minor misjudgments in traffic signal comprehension associated with cognitive fog occurring a couple of times in the past week. He communicated experiencing increased anxiety and difficulty sleeping, which seems to exacerbate symptoms. The prior wide-spectrum neuroimaging tests were negative for acute or chronic visible lesions contributing directly to symptoms. [facility] Medical History (Updated 02/26/25 @ 10:25 by Cuong Hogan MD) Dysarthria Review of Systems Const Details: - Neurological: Reports episodic slurred speech and tremor. Denies swallowing difficulties. - Cognitive: Reports occasional confusion and brain fog especially during tired states. Denies hallucinations. Physical Exam Neuro Other: Mental Status: Alert and oriented to person, place, and time. Normal attention. Normal spontaneous speech, fluency, and comprehension. Cranial Nerves: CN II: Visual barks[place] full to confrontation, visual acuity intact. CN III, IV, : Pupils equal, round, reactive to light and accommodation. Extraocular movements are normal. CN V: Facial sensation is normal. CN VII: Facial movements symmetrical. CN VIII: Hearing intact to bedside conversation is normal. CN IX, X: Palate elevates symmetrically. CN XI: Shoulder shrug and head turn symmetrical. CN XII: Tongue midline without atrophy or fasciculations. Reflexes: Deep tendon reflexes are trace to 1+ Coordination: Mild bilateral [id number] ataxia Gait and Station: No obvious gait abnormality. No ataxia or instability. Extrapyramidal: Full facial expressions and blinking. No rigidity. Movements are appropriate with no tremor or abnormality. Slightly widened stare. No limitation of eye movements Speech: Normal; no dysarthria or tremor. Assessment & Plan Assessment & Plan (1) Dysarthria: Comment: ACh Abs at [facility] in 2023: WNL MRI brain WO at [place] in December 2023: Mnimal MVD, mild atrophy CT brain WO at [facility] in November and December 2023: Mild diff atrophy, mild MVD CTA brain and neck at [facility] in November and December 2023: No vascular stenosis. Code(s): R47.1 - Dysarthria and anarthria Category: Medical Plan: I discussed with the patient that the episodic nature of the dysarthria and associated cognitive concerns could be linked to subtle neural circuitry abnormalities, ruling out any acute pathologies like strokes due to prior normal imaging. The progressive but not severe nature of symptoms indicates they may worsen gradually, without immediate medication necessity. We highlighted the importance of regular six-month check-ups to adjust management strategies as necessary. For the tremor and cognitive issues, lifestyle interventions were prioritized, focusing on minimizing stress and ensuring adequate rest. Ensuing our conversation, we considered neurological caution during driving, encouraging a coding auditor to drive when feasible. Our proactive approach with periodic evaluations supports patient safety and symptom management, aligning treatment sensitivity to reported daily function challenges. (2) Anxiety: Code(s): F41.9 - Anxiety disorder, unspecified Category: Medical Plan Impression patient's: 60 or man with a syndrome presenting as mild dysarthria, mild tremor, and sometime unsteadiness. Examination revealed mildly widened stare, mild hand tremor and mild bilateral [id number] ataxia. 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 No particular treatment is available and clinical follow would continue. Medications: New escitalopram oxalate 5 mg PO DAILY 90 tabs 0RF Coding Level of Care Code Est Pt Level 4 (72842) Diagnoses Dysarthria R47.1 Anxiety F41.9
--- OUTSIDE RECORDS SUMMARY | 2025-02-26 12:21 | XMS_ITS | Encounter Summary ---
Author Organization [facility] Address [id number] [place] [id number] Care Team Providers Care Embedder Name Role Phone Pita Lopes MD Primary Care Provider Reason for Visit * Reason Onset Date Comments Shaking 02/26/2025 testing 02/26/2025 Encounter Details Date Type Department Care Team ([facility] st Contact Info) Description 02/26/2025 Telephone Adult Medicine - [place] [address] [place] [id number] Pita Lopes MD [address] [place] [address] Social History Tobacco Use Types Packs/Day Years Used Date Smoking Tobacco: Never Smokeless Tobacco: Never Alcohol Use Standard Drinks/Week Comments Yes 0 (1 standard drink = 0.6 oz pur e alcohol) Sex and Gender Information Value Date Recorded Sex Assigned at Not on file Legal Sex Male 3:17 PM EST Gender Identity Not on file Sexual Orientation Not on file documented as of this encounter Progress Notes * Jignesh Oh RN - 02/26/2025 11:33 AM EDT Pt advised to go back to the er , pt has loss of balance and trouble speaking , pt Left the hospital , pt was advised to go back that is is important , this is not something primary care can do , pt agreed * Isela Batres - 02/26/2025 11:21 AM EDT Patient call requires triage: Symptoms patient is presenting: pt went to the ER [place] for stroke symptoms - pt did not want to stay hospital wants him to get an urgent mri - pt has been off balance - can't finish his sentences How long has patient had these symptoms?: 1 week For ALL patients calling to schedule any appointment (routine, sick visit, follow up, consult, etc.) in the outpatient setting please ask the following questions: Do you have fever of higher than 101, sore throat with difficulty swallowing or severe shortness ofbreath? no If YES to any of these above symptoms, send a message to triage and do not book. Red dot. If no, an audio or video visit should be booked. Have you had close contact with someone with Coronavirus in the last 14 days? no Have you traveled abroad? no Have you traveled recently to another state outside of [place], [place], [place], [place], [place], [place], [place]? no o If yes, did you quarantine for 14 days or have a negative covid test? no If yes to any of the above, patient is not to be scheduled in office until after 14 day quarantine or negative covid test. If pain or injury related was it due to an accident at work or from a motor vehicle accident? If yes, date of accident/Injury: No If yes, gather 3rd libertarian insurance information Third Constitution Party Information: not applicable PCP: Pita Lopes MD Payor: [facility] MEDICARE / Plan: [facility] MEDICARE ADVANTAGE / Product Type: *No Product type* / documented in this encounter Plan of Treatment Upcoming Encounters Date Type Department Care Team (Late st Contact Info) Description 05/09/2025 11:00 AM EST Office Visit Adult Medicine - [place] [address] [place] [phone] Pita Lopes MD [address] [place], [place] documented as of this encounter Visit Diagnoses Not on filedocumented in this encounter Care Teams Embedder Relationship Specialty Start Date End Date Pita Lopes MD [address] [id number] PCP - General Internal Medicine 08/23/21 documented as of this encounter
--- OUTSIDE RECORDS SUMMARY | 2025-02-26 12:21 | XMS_ITS | Clinical Summary ---
Author Organization [facility] [address] [facility] Address [address] [place] [address] Phone Care Team Providers Care Control Supervisor Name Role Phone Pita Lopes MD Primary [...] Overview (06/13/2024): Per patient endoscopy due 2021 Encounters Date Type Department Care Team Description 02/26/2025 Telephone Adult Medicine [facility] [address] [place] [phone] Pita Lopes MD from Last 3 Months Immunizations Name Administration Dates Next Due DTaP [...] AM EST Office Visit Adult Medicine - [place] [address] [place] [phone] Pita Lopes MD [address] [place] [address] Health Maintenance Due Date Last Done Comments [...] LAB CHEMISTRY METHOD 11/01/2024 1:[address] [facility] Triglycerides 37 0 - 150 mg/dL LAB CHEMISTRY METHOD 11/01/2024 1:[address] [facility] HDL 56 >=40 mg/dL LAB CHEMISTRY METHOD 11/01/2024 1:[address] [facility] LDL Calculated 49 0 - 100 mg/dL LAB CHEMISTRY METHOD 11/01/2024 1:[address] [facility] VLDL Cholesterol Vini 7.4 mg/dL LAB CHEMISTRY METHOD 11/01/2024 1:[address] [facility] Non HDL Chol. (LDL+VLDL) 56 <145 mg/dL LAB CHEMISTRY METHOD 11/01/2024 1:[address] [facility] Chol/HDL Ratio 2.0 0.0 - 4.4 LAB CHEMISTRY METHOD 11/01/2024 1:[address] [facility] Blood Venous blood specimen / Unknown Venipuncture / Unknown 11/01/2024 10:39 AM EDT 11/01/2024 10:41 AM EDT [facility] BLOOD ORDERABLES Final Re sult [facility] [address] [place] [address], * Depression Screening (04/01/2024) Depression Screening abstracted Historical Provider HEALTH MAINTENANCE Final Result * Hepatitis C Screening (08/31/2020) Hepatitis C Screening abstracted Historical Provider HEALTH MAINTENANCE Final Result from Last 3 Months or Most Recently Relevant to Health Maintenance Insurance [place]ICAID - [place] [employer] MEDICARE Care Teams Control Supervisor Relationship Specialty Start Date End Date Pita Lopes MD [address] [place] [id number] PCP - General Internal Medicine 08/23/21
== END 2025-02-26 10:27 | disposition home or self-care (01) ==
LOC: HO.HSM 10:10
PROVIDERS: PCP Physician Assistant; Visit Provider Psychiatry & Neurology Neurology
DX: R47.1 Dysarthria and anarthria (principal); F41.9 Anxiety disorder, unspecified
CPT/HCPCS: 99214

== ENCOUNTER → 2025-02-26 10:09 | Outpatient (BNVA) | payer MEDICARE, MEDICAID, SELFPAY | PROVIDERS: PCP Physician Assistant; Visit Provider Psychiatry & Neurology Neurology | DX: R47.1 Dysarthria and anarthria (principal); F41.9 Anxiety disorder, unspecified | CPT/HCPCS: 99212 ==

== ENCOUNTER 2025-03-06 08:33 | Emergency (ER) | payer MEDICARE, SELFPAY ==
--- NOTE | ~2025-03-06 | CT_ITS ---
EXAMINATION: CTA NECK WITH CONTRAST (STROKE) CTA BRAIN WITH CONTRAST (STROKE) CLINICAL INFORMATION: Slurred speech. Concerning stroke. COMPARISON: January 16, 2024. TECHNIQUE: CTA of the head and neck was performed in the axial plane from the mediastinum to the skull vertex using 70 mL Omnipaque 350 intravenous contrast. Additional reformatted multiplanar images including maximum intensity projection MIP images are generated on the CT workstation. This CT examination was performed using dose optimization techniques as appropriate, variously including the following: *Automated exposure control *Adjustment of mA and/or kV according to patient size (this includes techniques or standardized protocols for targeted exams where dose is matched to indication/reason for exam; i.e. extremities or head) *Use of iterative reconstruction technique. DLP: 1662 mg centimeter. FINDINGS: The degree of stenosis determined by criteria similar to NASCET. Brain: No acute intracranial hemorrhage, mass effect, midline shift, hydrocephalus or herniation. Greer-white matter differentiation is normal. Posterior cranial fossa contents demonstrated no acute hemorrhage or gross mass effect. There is normal position of the cerebellar tonsils. Calcified plaques in the V4 segments of the vertebral arteries and the cavernous supracavernous segments both ICAs. There is no dense No air-fluid levels in the paranasal sinuses. Mucosal thickening, left maxillary sinus. Old traumatic deformities, nasal bones. Tympanic cavities and mastoid air cells are aerated. MCA sign. Chest CTA: No aneurysm or dissection or focal stenosis in the thoracic aortic arch. Calcified plaques in the thoracic aortic arch wall and the origin of its main branches. Neck CTA: Right CCA: Normal patency. Mixed plaque. No focal stenosis. No intimal flap. Right ICA: Mixed plaque in the proximal segment representing 50% stenosis. Normal patency. No intimal flap. Left CCA: Normal patency. No focal stenosis. No intimal flap. Left ICA: Mixed plaques in the proximal segment representing 20% stenosis. No intimal flap. Normal patency. Tortuosity. V1/V2 segments: Normal patency. No focal stenosis. No intimal flap. Codominant vertebral arteries. Origin from the superior arteries. Brain CTA: Anterior cerebral circulation: ICAs: Calcified plaques in the cavernous supraclinoid segments. Normal patency. No focal stenosis. No intimal flap or abrupt cut off. MCA's: Normal patency. No focal stenosis. No abrupt cut off. Bifurcation/trifurcation demonstrated no vascular irregularity. ACAs: Normal patency. No focal stenosis. No abrupt cut off. Small caliber left A1 segment. Ophthalmic arteries are patent with limited evaluation at the origin. Posterior communicating arteries are patent with small caliber. Anterior communicating artery is patent. Posterior cerebral circulation: V3/V4 segments: Calcified plaques in the left vertebral artery representing 60% stenosis. Posterior inferior cerebellar arteries are patent. Basilar artery is patent without intimal flap or focal stenosis. Anterior inferior cerebral arteries are patent. Superior cerebellar arteries are patent. check weigher: Normal patency. No focal stenosis. No abrupt cut off. Ancillary findings: Main cerebral venous sinuses are patent without intraluminal filling defect. Heterogeneous soft tissue fullness in the palatine tonsils. Pulmonary mosaic pattern. Cervical spondylosis C5-6 and C6-7 with a grade 1 anterolisthesis C5-6 and incomplete ankylosis C6-7. CT/CT angio head neck IMPRESSION: No main cerebral artery occlusion or embolus or gross aneurysm. Mixed plaques in the carotid bulbs proximal ICAs without high degree stenosis. No dissection. This critical test result is communicated to: emergency physician Dr. Mary Shi via [employer] at 10:29 AM on March 06, 2025. Electronically signed by: Santos Hogue MD 03/06/2025 10:37 AM EDT
[2025-03-06 08:36] VITALS: BP 141/88; PULSE 68; RESP 16; TEMP 36.1; O2SAT 95; BMI 27.2
--- NOTE | 2025-03-06 08:43 | ED_ITS ---
HPI - Neuro Symptoms/Deficit General Chief Complaint: Neuro Symptoms/Deficit Stated Complaint: splurred speach Time Seen by Provider: 03/06/25 08:43 Source: patient and family (patient's son) Mode of arrival: ambulatory Limitations: no limitations History of Present Illness ED Provider: Bianka Nix PA-C HPI Narrative: Patient is a 69 year old assigned male at with a history of CVA, BPH and HLD presenting to the emergency department for slurred speech. Patient reports that he noticed his words were more slurred this morning when he woke up around 0400 AM prompting him to present to the emergency department. Patient states that he has been experiencing episodes of slurred speech for about 2 months now. Patient's son also reports episodes of disorientation where the patient will stare off into space and act more confused, but resolve after a few minutes. Patient states that he has noticed episodes of blurry vision, but they do not occur at the same time as the symptoms and he attributed this to increasing age. Patient also reports recent increased familiar stressors. Patient was evaluated on 02/24 for similar symptoms, acute processes were ruled out, and he was discharged with a referral to Dr. Hogan. Dr. Hogan did not suspect anything acute, suspected anxiety, and recommended routine follow-up. Patient was seen in 11/2023 for similar episode of dysarthria and CT showed decreased attenuation in the right cerebellum questionable for infarct. However, when he followed up - he was told it was not a stroke. He reports his only blood thinner is aspirin currently. Patient reports starting semaglutide for weight loss, but he has not taken a dose in 3 or 4 weeks due to concern that this is contributing to his symptoms. Patient reports never smoking cigarettes, no alcohol use, and no other substance use. Patient denies any headache, dizziness, lightheadedness, diplopia, eye pain, difficulty chewing, dysphagia, chest pain, SOB, abdominal pain, back pain, urinary symptoms, changes to bowel function, weakness, numbness, tingling, or any other symptoms at this time. Onset (ago): month(s) (2 months) Related Data Previous Rx's ?Medication ?Instructions ?Recorded ibuprofen 600 mg tablet 600 mg PO Q8H PRN fever or p ain 02/27/21 #10 tabs levofloxacin 500 mg tablet 500 mg PO DAILY #10 tabs atorvastatin 40 mg tablet 40 mg PO DAILY #30 tabs 06/0 10/10 clopidogrel 75 mg tablet (Plavix) 75 mg PO DAILY #30 t abs 11/21/23 meclizine 25 mg tablet 25 mg PO DAILY PRN dizziness #14 01/16/24 tabs loperamide 2 mg capsule (Imodium 2 mg PO Q4H PRN loose stool #20 05/17/24 A-D) caps ondansetron 4 mg disintegrating 4 mg PO Q8H PRN nausea and 05/17/24 tablet vomiting #20 tabs escitalopram oxalate 5 mg tablet 5 mg PO DAILY #90 tab s 02/26/25 Allergies Allergy/AdvReac Type Severity Reaction Status Date / Time No Known Allergies Allergy Verified 03/06/25 08:37 Review of Systems 2 Constitutional: Constitutional: Reports as per HPI Eyes: Eyes: Reports as per HPI ENT: Reports as per HPI Cardiovascular: Cardiovascular: Reports as per HPI Respiratory: Respiratory: Reports as per HPI Gastrointestinal: Gastrointestinal: Reports as per HPI Genitourinary: Genitourinary: Reports as per HPI Musculoskeletal: Musculoskeletal: Reports as per HPI Integumentary/Breasts: Skin/Breast: Reports as per HPI Neurologic: Reports as per HPI Psychiatric: Psychiatric: Reports as per HPI Endocrine: Endocrine: Reports as per HPI Hematologic/Lymphatic: Hematologic/Lymphatic: Reports as per HPI Allergic/Immunologic: Allergic/Immunologic: Reports as per HPI [facility] Past Medical History Attestation statement: The following information was validated with the patient. (all information validated with the patient's son) Source: old records reviewed, obtained from family (patient's son provided additional history and confirmed the history provided by the patient. ) and nursing notes reviewed Medical History Dysarthria Social History Social History Smoked in Last 30 Days: No Use of substances other than those prescribed or required for medical reasons: No Advance Directives: No Advance Directives Information Provided: Yes Physical Exam 2 Vital Signs: Vital Signs: Last Vital Signs Temp 98.2 F 03/06/25 10:42 Pulse 65 03/06/25 10:42 Resp 16 03/06/25 10:42 BP 121/76 03/06/25 10:42 Pulse Ox 97 03/06/25 10:42 O2 Del Method Room Air 03/06/25 10:42 BMI result Body Mass Index 27.2 Const: General: cooperative, no acute distress, alert and awake Nutritional Appearance: well nourished Orientation/consciousness: patient oriented x3 HEENT: Head: Yes normal to inspection and Yes atraumatic Ears: hearing grossly normal bilaterally and external ears normal General nose exam: Normal external nose present, no nasal discharge noted and no epistaxis Face and sinus: Yes normal facial exam, No abrasion and No laceration Mouth: Normal oral and palatal mucosa present, no drooling and no muffled voice Eyes: General: appearance normal, both eyes and all related structures P eriorbital: periorbital findings normal Eyelids: Yes eyelids normal C onjunctivae: conjunctivae normal Pupils: Equal, round and reactive pupils present EOM: EOMs intact bilaterally Neck: Neck: Yes normal visual inspection and Yes full ROM Resp: Effort & Inspection: normal respiratory effort and able to speak in complete sentences Neuro: General: patient oriented x3, moves all extremities and CN's II-XI intact bilaterally Cranial nerves: Yes Equal, round and reactive pupils present Cognition (Neuro): normal cognition Extrem: General: Yes normal to inspection, Yes full ROM and Yes capillary refill normal Psych: Appearance: grossly normal Mental Status: mental status grossly normal Affect: normal affect Attitude: cooperative Thought process: N ormal thought process present Thought content: Normal thought content present Insight: Good insight present (Psych) Medications Administered Discontinued Medications Generic Name Dose Route Start Last Admin Trade Name Aceq PRN Reason Stop Dose Admin Iohexol 100 ml 03/06/25 10:05 03/06/25 10:06 Iohexol 350 Mg/Ml 100 Ml Infus..Btl IV 03/06/25 10:06 70 ml ONCE ONE Administration Medical Decision Making Medical Decision Making MDM Narrative: Patient is a 69 year old assigned male at with a history of CVA, BPH and HLD presenting to the emergency department for slurred speech. Patient's physical exam was as noted in the physical exam portion of this note with no evidence of slurred speech or stroke like symptoms. Patient's blood work was unremarkable. . Patient's CTA head and neck showed no acute process. I explained my physical exam findings as well as all test results to the patient and the patient's son. I answered all questions asked by the patient and the patient's son. I explained that his clinical presentation and history are most concerning for a non-emergent neuromuscular disorder that he should have worked up further on an outpatient basis. I stressed the importance of the patient taking his medication as directed (either prescribed or as the over the counter packaging recommends). I stressed the importance of the patient following up with his primary care provider and a neurologist. I stressed the importance of the patient returning to the emergency department immediately if his symptoms were to worsen or if he were to develop any dizziness, shortness of breath, difficulty breathing, chest pain, blurry vision, loss of vision, nausea, vomiting, abdominal pain, fever, chills, back pain, or any other complaints. Patient and the patient's son verbalized agreement and understanding with this treatment plan and discharge. Differential Diagnosis Differential Diagnoses: The differential diagnosis associated with the presentation includes Neuromuscular disorder Intermittent slurred speech Admission/Observation Consideration of admission/observation: Escalation of care including admission/observation considered Patient would have been admitted to the hospital had his work up had any findings where hospital admission was appropriate and his clinical presentation warranted hospital admission. Lab Data [facility] Lab Attestation statement: I reviewed the patient's lab results. My interpretation of these results are in the [facility] Rationale portion of this note. 03/06/25 09:07 03/06/25 09:07 Labs: Lab Results 03/06/25 03/06/25 Range/Units 09:07 09:34 WBC 6.5 (4.8-10.8) X10*3/uL RBC 4.74 (4.60-5.80) X10*6/uL Hgb 14.9 (14.0-18.0) g/dl Hct 44.5 (42.0-52.0) % MCV 93.9 (80.0-98.0) fL MCH 31.4 (27.0-33.0) pg MCHC 33.5 (31.0-36.0) g/dl RDW 13.1 (11.0-16.0) % Plt Count 193 (160-400) X10*3/uL MPV 9.3 L (9.4-12.4) fL Immature Gran % (Auto) 0.3 (0.0-0.4) % Neut % (Auto) 71.8 (45-73) % Lymph % (Auto) 15.8 L (20-40) % Gladwin % (Auto) 7.0 (2-11) % Eos % (Auto) 4.8 H (0-4) % Baso % (Auto) 0.3 (0-2) % Lymph # (Auto) 1.0 L (1.2-4.9) X10*3/uL Gladwin # (Auto) 0.5 (0.1-1.2) X10*3/uL Eos # (Auto) 0.3 (0.0-0.4) X10*3/uL Baso # (Auto) 0.0 (0.0-0.2) X10*3/uL Abs Immat Gran (auto) 0.02 (0.00-0.03) X10*3/uL Absolute Neuts (auto) 4.6 (2.0-8.3) x10*3/uL Absolute Nucleated RBC 0.000 (0.0-0.012) X10*3/uL Nucleated RBC % (auto) 0.0 (0.0-0.2) /100WBC Sodium 141 (135-145) mmol/L Potassium 4.3 (3.3-5.1) mmol/L Chloride 109 H (96-108) mmol/L Carbon Dioxide 28 (22-29) mmol/L Anion Gap 8 L (12-20) BUN 22 H (9-16) mg/dL Creatinine 1.07 (0.5-1.4) mg/dL Estim Creat Clear Calc 69.3 Estimated GFR > 60 Random Glucose 101 (60-115) mg/dL Calcium 8.6 (8.4-10.2) mg/dL Total Bilirubin 0.9 (0.0-1.0) mg/dL AST 32 (5-37) U/L ALT 31 (0-40) U/L Alkaline Phosphatase 64 (39-117) U/L Total Protein 6.2 L (6.5-8.0) g/dL Albumin 3.5 (3.5-5.0) g/dL Vitamin B12 436 (200-900) pg/mL Folate 4.1 (> or = 4.0) ng/mL TSH 1.11 (0.32-4.0) uIU/mL T.pallidum Ab (EIA) Nonreactive (Nonreactive) Independent Interpretation I performed an independent interpretation of an: CT Scan Interpretation: My interpretation is in agreement with the radiologist's impression of this imaging study. L Reason for Exam: slurred speech - worsening EXAMINATION: CTA NECK WITH CONTRAST (STROKE) CTA BRAIN WITH CONTRAST (STROKE) CLINICAL INFORMATION: Slurred speech. Concerning stroke. COMPARISON: January 16, 2024. TECHNIQUE: CTA of the head and neck was performed in the axial plane from the mediastinum to the skull vertex using 70 mL Omnipaque 350 intravenous contrast. Additional reformatted multiplanar images including maximum intensity projection MIP images are generated on the CT workstation. This CT examination was performed using dose optimization techniques as appropriate, variously including the following: *Automated exposure control *Adjustment of mA and/or kV according to patient size (this includes techniques or standardized protocols for targeted exams where dose is matched to indication/reason for exam; i.e. extremities or head) *Use of iterative reconstruction technique. DLP: 1662 mg centimeter. FINDINGS: The degree of stenosis determined by criteria similar to NASCET. Brain: No acute intracranial hemorrhage, mass effect, midline shift, hydrocephalus or herniation. Greer-white matter differentiation is normal. Posterior cranial fossa contents demonstrated no acute hemorrhage or gross mass effect. There is normal position of the cerebellar tonsils. Calcified plaques in the V4 segments of the vertebral arteries and the cavernous supracavernous segments both ICAs. There is no dense No air-fluid levels in the paranasal sinuses. Mucosal thickening, left maxillary sinus. Old traumatic deformities, nasal bones. Tympanic cavities and mastoid air cells are aerated. MCA sign. Chest CTA: No aneurysm or dissection or focal stenosis in the thoracic aortic arch. Calcified plaques in the thoracic aortic arch wall and the origin of its main branches. Neck CTA: Right CCA: Normal patency. Mixed plaque. No focal stenosis. No intimal flap. Right ICA: Mixed plaque in the proximal segment representing 50% stenosis. Normal patency. No intimal flap. Left CCA: Normal patency. No focal stenosis. No intimal flap. Left ICA: Mixed plaques in the proximal segment representing 20% stenosis. No intimal flap. Normal patency. Tortuosity. V1/V2 segments: Normal patency. No focal stenosis. No intimal flap. Codominant vertebral arteries. Origin from the superior arteries. Brain CTA: Anterior cerebral circulation: ICAs: Calcified plaques in the cavernous supraclinoid segments. Normal patency. No focal stenosis. No intimal flap or abrupt cut off. MCA's: Normal patency. No focal stenosis. No abrupt cut off. Bifurcation/trifurcation demonstrated no vascular irregularity. ACAs: Normal patency. No focal stenosis. No abrupt cut off. Small caliber left A1 segment. Ophthalmic arteries are patent with limited evaluation at the origin. Posterior communicating arteries are patent with small caliber. Anterior communicating artery is patent. Posterior cerebral circulation: V3/V4 segments: Calcified plaques in the left vertebral artery representing 60% stenosis. Posterior inferior cerebellar arteries are patent. Basilar artery is patent without intimal flap or focal stenosis. Anterior inferior cerebral arteries are patent. Superior cerebellar arteries are patent. director of field sales: Normal patency. No focal stenosis. No abrupt cut off. Ancillary findings: Main cerebral venous sinuses are patent without intraluminal filling defect. Heterogeneous soft tissue fullness in the palatine tonsils. Pulmonary mosaic pattern. Cervical spondylosis C5-6 and C6-7 with a grade 1 anterolisthesis C5-6 and incomplete ankylosis C6-7. CT/CT angio head neck IMPRESSION: No main cerebral artery occlusion or embolus or gross aneurysm. Mixed plaques in the carotid bulbs proximal ICAs without high degree stenosis. No dissection. This critical test result is communicated to: emergency physician Dr. Mary Shi via [employer] connect at 10:29 AM on March 06, 2025. Electronically signed by: Santos Hogue MD 03/06/2025 10:37 AM EDT Dictated By: Santos Herrera MD Signed By: Electronically signed by Santos Hobson MD 03/06/25 1037 Radiology Impression Discussion of test interpretation with radiology: I have reviewed the radiologist's reading. Independent Historian Clinical information obtained from an independent historian. History obtained from or confirmed by: Other (patient's son provided additional history and confirmed the history provided by the patient. ) External Record Review External record reviewed: Office record and Outpatient record NIH Stroke Scale Internal: Initial- Upon Arrival Level of Consciousness: Alert Level of Consciousness Questions: Answers both questions correctly Level of Consciousness Commands: Performs both tasks correctly Best Gaze: Normal Visual: No visual loss Facial Palsy: Normal Motor Arm (Right): No drift Motor Arm (Left): No drift Motor Leg (Right): No drift Motor Leg (Left): No drift Limb Ataxia: Absent Sensory: Normal Best Language: No aphasia Dysarthia: Normal Extinction and Inattention: No abnormality Score: 0 Discharge Plan Discharge Clinical Impression: Slurring of speech Patient Disposition: Home, Self-Care Additional Instructions: Your work up today was NEGATIVE for any acute process / emergent cause of your symptoms. I am suspicious that you have a neuromuscular disorder that is exacerbated by stress / stressful situations / anxiety. IF you are prescribed home medications and/or you are taking over the counter medications at home - it is very important you continue to do so as prescribed / directed unless told otherwise. Follow up with your primary care provider. Return to the emergency department immediately if your symptoms worsen or if you develop any numbness, tingling, dizziness, shortness of breath, difficulty breathing, chest pain, blurry vision, loss of vision, nausea, vomiting, abdominal pain, fever, chills, back pain, or any other complaints. Please see the information below about our Patient Portal. If you are not yet enrolled in the [facility] Patient Portal, you will receive an enrollment email invitation following your visit to any [facility] setting. You may also self-enroll in the Patient Portal by visiting our website: [email or web address] The following information is required to access the Patient Portal: - Your [facility] Medical Record Number - Your personal home email address (must match what is in your electronic medical record, Registration staff can assist with this) - Name - Date of Capabilities of the Patient Portal: - Message some providers - View upcoming appointments - Access your health summary, medical history, and visit history - View current conditions and allergies - View procedure and lab results - View your medications, including guidelines, side effects, and precautions - Complete pre-appointment questionnaires requested by your provider - Ready summary reports of your office visits and procedures To access the Patient Portal Mobile Aisha, follow these directions: - Search PlatformQ in the Aisha Store or Google Play Store - Download the Aisha - Search for [facility] - Enter your login/password Prescriptions: No Action levofloxacin 500 mg tablet 500 mg PO DAILY Qty: 10 0RF ibuprofen 600 mg tablet 600 mg PO Q8H PRN (Reason: fever or pain) Qty: 10 0RF loperamide [Imodium A-D] 2 mg capsule 2 mg PO Q4H PRN (Reason: loose stool) Qty: 20 0RF Rx Instructions: administer after each loose stool until symptoms controlled; do not exceed 8 mg per 24 hrs ondansetron 4 mg tablet,disintegrating 4 mg PO Q8H PRN (Reason: nausea and vomiting) Qty: 20 0RF clopidogrel [Plavix] 75 mg tablet 75 mg PO DAILY Qty: 30 0RF atorvastatin 40 mg tablet 40 mg PO DAILY Qty: 30 0RF meclizine 25 mg tablet 25 mg PO DAILY PRN (Reason: dizziness) Qty: 14 0RF escitalopram oxalate 5 mg tablet 5 mg PO DAILY Qty: 90 0RF Referrals: Jed Bhandari PA-C [Primary Care Provider, Internal Medicine] Interventions: ED Discharge Assessment Last Done: 03/06/25 10:42 Discharge Date/Time: 03/06/25 10:43 Print Language: Citizen Of [place]
[2025-03-06 08:50] VITALS: BP 121/69; PULSE 59; RESP 16; TEMP 36.8; O2SAT 97
[2025-03-06 09:14] LABS: MANUAL DIFF FLAG NO
[2025-03-06 09:18] LABS: Hematocrit 44.5 % (42.0-52.0); Hemoglobin 14.9 g/dl (14.0-18.0); Imm Gran Abs Auto 0.02 X10*3/uL (0.00-0.03); Imm Gran Pct Auto 0.3 % (0.0-0.4); Lymphocytes Absolute Auto 1.0 X10*3/uL (1.2-4.9); Mean Corpuscular HGB Conc 33.5 g/dl (31.0-36.0); Mean Corpuscular Hemoglobin 31.4 pg (27.0-33.0); Mean Corpuscular Volume 93.9 fL (80.0-98.0); NRBC Abs Auto 0.000 X10*3/uL (0.0-0.012); NRBC Pct Auto 0.0 /100WBC (0.0-0.2); Platelet Count 193 X10*3/uL (160-400); Red Blood Count 4.74 X10*6/uL (4.60-5.80); White Blood Count 6.5 X10*3/uL (4.8-10.8)
[2025-03-06 09:38] LABS: Alanine Aminotransferase 31 U/L (0-40); Albumin Level 3.5 g/dL (3.5-5.0); Alkaline Phosphatase 64 U/L (39-117); Anion Gap 8 (12-20); Aspartate Amino Transferase 32 U/L (5-37); Blood Urea Nitrogen 22 mg/dL (9-16); Calcium 8.6 mg/dL (8.4-10.2); Carbon Dioxide 28 mmol/L (22-29); Chloride 109 mmol/L (96-108); Creatinine Clr Calc Pharmacy 69.3; Estimated Glomerular Filt Rate > 60; Potassium 4.3 mmol/L (3.3-5.1); Sodium 141 mmol/L (135-145); Total Protein 6.2 g/dL (6.5-8.0)
[2025-03-06] MEDS: iohexoL 350 MG/ML 100 ML INFUS..BTL IV (10:06)
[2025-03-06 10:19] LABS: Syphilis Screen Nonreactive (Nonreactive)
[2025-03-06 10:32] LABS: Folate 4.1 ng/mL (> or = 4.0); Vitamin B12 436 pg/mL (200-900)
[2025-03-06 10:42] VITALS: BP 121/76; PULSE 65; RESP 16; TEMP 36.8; O2SAT 97
--- OUTSIDE RECORDS SUMMARY | 2025-03-06 10:46 | XMS_ITS | Clinical Summary ---
Author Organization [facility] [address] [facility] Address [address] [place] [address] Phone Care Team Providers Care In Store Representative Name Role Phone Pita Lopes MD Primary [...] Care Team Description 02/26/2025 Telephone Adult Medicine [facility] [address] [place] [address] Pita Lopes MD from Last [...] AM EST Office Visit Adult Medicine - [place] [address] [place] [address] Pita Lopes MD [address] [place] [address] Health Maintenance Due Date Last Done Comments [...] LAB CHEMISTRY METHOD 11/01/2024 1:18 PM EDT [facility] Triglycerides 37 0 - 150 mg/dL LAB CHEMISTRY METHOD 11/01/2024 1:18 PM EDT [facility] HDL 56 >=40 mg/dL LAB CHEMISTRY METHOD 11/01/2024 1:18 PM EDT [facility] LDL Calculated 49 0 - 100 mg/dL LAB CHEMISTRY METHOD 11/01/2024 1:18 PM EDT [facility] VLDL Cholesterol Vini 7.4 mg/dL LAB CHEMISTRY METHOD 11/01/2024 1:18 PM EDT [facility] Non HDL Chol. (LDL+VLDL) 56 <145 mg/dL LAB CHEMISTRY METHOD 11/01/2024 1:18 PM EDT [facility] Chol/HDL Ratio 2.0 0.0 - 4.4 LAB CHEMISTRY METHOD 11/01/2024 1:18 PM EDT [facility] Blood Venous blood specimen / Unknown Venipuncture / Unknown 11/01/2024 10:39 AM EDT 11/01/2024 10:41 AM EDT [facility] BLOOD ORDERABLES Final Re sult [facility] [address] [place] [address], * Depression Screening (04/01/2024) Depression Screening abstracted Historical Provider HEALTH MAINTENANCE Final Result * Hepatitis C Screening (08/31/2020) Hepatitis C Screening abstracted Historical Provider HEALTH MAINTENANCE Final Result from Last 3 Months or Most Recently Relevant to Health Maintenance Insurance MEDICAID - [place] [employer] MEDICARE Care Teams In Store Representative Relationship Specialty Start Date End Date Pita Lopes MD [address] [place] [phone] PCP - General Internal Medicine 08/23/21
[2025-03-07 06:09] LABS: Lyme Abs Screen <0.90 index
[2025-03-07 16:08] LABS: A. Phagocytphilium DNA,RT-PCR NOT DETECTED (NOT DETECTED); Babesia Microti DNA, RT-PCR NOT DETECTED (NOT DETECTED); Borrelia Miyamotoi,DNA RT-PCR NOT DETECTED (NOT DETECTED); E.Chaffeensis DNA RT-PCR NOT DETECTED (NOT DETECTED); Lyme(Borrelia ssp)DNA RT-PCR NOT DETECTED (NOT DETECTED)
== END 2025-03-06 10:43 | disposition home or self-care (01) ==
PROVIDERS: Physician Assistant Medical; Emergency Provider Emergency Medicine; PCP Physician Assistant
DX: R47.81 Slurred speech (principal); Z86.73 Personal history of transient ischemic attack (TIA), and cerebral infarction without residual deficits; Z79.899 Other long term (current) drug therapy
CPT/HCPCS: 36415; 70496; 70498; 80053; 82607; 82746; 84443; 85025; 86617; 86618; 86780; 87468; 87469; 87478; 87484; 87798; 99284; Q9967

== ENCOUNTER → 2025-03-06 09:29 | Outpatient (BNV) | payer MEDICARE, SELFPAY | PROVIDERS: Emergency Provider Emergency Medicine; PCP Physician Assistant; Visit Provider Radiology Diagnostic Radiology | DX: R47.81 Slurred speech (principal) | CPT/HCPCS: 70496; 70498 ==